=== PATIENT | male | born 1945 | race Caucasian/White ===

== ENCOUNTER → 2018-05-20 12:57 | Outpatient (CLI) | payer MEDICARE, SELFPAY ==
--- NOTE | 2018-05-20 | DI.CT.S_ITS ---
PROCEDURE: CT UE RT WO CON INDICATIONS: RIGHT HAND PAIN TECHNIQUE: Noncontrast 1 mm axial sections acquired through the carpal bones, with coronal and sagittal reformats. COMPARISON: [facility], CR, XR HAND 3+ VIEWS RIGHT, 05/16/2018, 12:37. FINDINGS: Image quality: Excellent. Bones: There is a complex comminuted intra-articular fracture involving the base of the fifth metacarpal bone, with malalignment that is moderate in overall severity and with impaction to the degree that there is a moderate degree of overlap of bone fragments in malalignment. Additionally, there is a non-displaced longitudinally oriented fracture through the fusiform bone, best seen on source axial images of T2 from series 2. Several small dystrophic calcifications are incidentally noted at the ulnar margin of the distal radius articular border, which do not represent a bulge of fragments by appearance. Soft tissues: No hematoma seen. No ligamentous rupture suspected. IMPRESSION: Impacted complex comminuted intra-articular fracture at the base of the fifth metacarpal bone, and more proximally there is a non-displaced longitudinally oriented fracture of the fusiform bone. The radius and ulna appear intact where well visualized. No additional fracture found over the visualized hand and wrist. Findings called to the ordering of care provider at the phone number provided, and voice mail was left for Dr. Vale, also with my pager number included should be wish to contact me directly. Dictated by: Victor M De Dios M.D. on 05/20/2018 at 14:06 Approved by: Victor M De Dios M.D. on 05/20/2018 at 14:18
== END ==
PROVIDERS: Family Provider Family Medicine; PCP Family Medicine; Visit Provider Orthopaedic Surgery
DX: S62.316A Displaced fracture of base of fifth metacarpal bone, right hand, initial encounter for closed fracture (principal); M79.641 Pain in right hand; X58.XXXA Exposure to other specified factors, initial encounter
CPT/HCPCS: 73200

== ENCOUNTER 2018-05-22 07:47 | Day surgery (SDC) | payer MEDICARE, SELFPAY ==
[2018-05-21 08:40] VITALS: BMI 27.3
[2018-05-22] VITALS (10 sets, daily range): BP systolic 117–165; BP diastolic 42–68; PULSE 64–77; RESP 10–16; TEMP 35.8–36.7; O2SAT 95–100; BMI 26.4
[2018-05-22] MEDS: LACTATED RINGERS 1,000 ML 42 ML IV (09:25)
--- NOTE | 2018-05-22 10:29 | PM.PREOP ---
Pre-operative Note Interval Note History & Physical reviewed/Exam performed by Physician: Yes Changes to H&P: No
[2018-05-22] MEDS: CEFAZOLIN 2 GM/100 ML FROZ.PIGGY IV (10:50)
--- NOTE | 2018-05-22 11:08 | SUR.OPER ---
Supine on padded OR bed, head on pillow, arms secured on padded arm boards at <90 degrees abduction, legs uncrossed, safety belt at thigh, tape over blanket over lower legs.AFTER INDUCTION RIGHT ARM TO HAND TABLE.
[2018-05-22] MEDS: BUPIVACAINE 0.5% W/ EPI (PF) VIAL 30 ML INJ (11:37)
--- NOTE | 2018-05-22 12:27 | P.OP_ITS ---
Operative Date/Time/Diagnoses Date of procedure: 05/22/18 Time of procedure: 11:00 Pre-op diagnosis: highly comminuted intra-articular based of 5th metacarpal fracture Post-op diagnosis: same Procedure & Clinicians Procedure: open reduction internal fixation of a intra-articular base of 5th metacarpal fracture Same procedure as scheduled: Yes Indications: highly comminuted intra-articular base of 5th metacarpal fracture Surgeon: Jaime Vale Video Camera Operator: Lorraine Dickens Anesthesia Type: General Operative Notes Findings: highly comminuted intra-articular base of 5th metacarpal fracture wi th the articular surface in multiple pieces. Closure Type: primary Prosthetic devices, grafts, tissues, transplants, or devices: Synthes handset Applied: implant(s) Estimated Blood Loss (mL): 1 Blood products transfused: none Tourniquet time (min): 75 Procedure in detail: On date of service, patient was met in the holding area. Operative site was signed and witnessed by the OR staff. The surgery once again discussed with patient and any remaining questions they had were answered fully. Patient was taken back to the operating theater and placed on the operating table in the supine position. Great care taken to ensure that all bony prominences were properly padded. A well-padded tourniquet was placed up along the upper extremity. A timeout was performed to verify patient's name, procedure, and operative site. The upper extremity was then prepped and draped in the normal sterile fashion. An Esmarch was used to exsanguinate the limb and the tourniquet was turned up to 250 mm mercury. A dorsal incision was made centered over the CMC joint. a 15 blade was used to incise the skin and fascial tissue. The dorsal branches coming off the ulnar nerve were identified and protected. The extensor tendon was retracted radially. The 15 blade was then used to open up the joint capsule to the CMC joint. This allowed us to visualize the intra-articular comminuted fracture. Reduction forceps were used to reduce the main fracture fragments and these were then provisionally fixated with multiple K wires. Once we were satisfied with the overall reduction of the articular surface, a T plate was placed with multiple screws fixating the articular fragments. This was then secured onto the shaft of the metacarpal. This provided an overall reduction of the joint surface as well as a secure fixation of part of the highly comminuted intra-articular fracture. There was still an articular fragment as well as extension into the shaft on the radial aspects of the joint. This was not fully fixated by the 1st plate. So a 2nd smaller plate was placed radially allowing us to get good fixation of the radial aspect of the comminuted joint and secure that to the shaft. A combination of both plates, provided a secure fixation of the highly comminuted intra-articular 5th metacarpal fracture The joint was then reduced the capsular tissue was then closed. Once the joint was reduced it was stable. The wound was then copiously irrigated and then closed in a layered fashion. The hand was then cleaned, dried, and dressed. Patient was placed into a splint and taken to the PACU in stable condition. Complications: none Condition: stable Disposition: PACU Plan for aftercare: patient will be immobilized for 2 weeks in a splint. At 2 weeks splint will come off sutures will be removed. Hand therapy at that point can make patient a brace immobilizing the fracture.
[2018-05-22] MEDS: fentaNYL 100 MCG/2 ML INJ 50 MCG IV (13:05)
[2018-05-22] MEDS: HYDROCODONE/ACET 5/325 TABLET 1 TAB PO ×2 (13:14→13:35)
--- NOTE | 2018-05-22 14:01 | SUR.PHASEII ---
Dr. Vale called [place] already aware of this and that pt[place]. OK for pt to d/c by [facility]le frank per Dr. Vale.
== END 2018-05-22 14:37 | disposition home or self-care (01) ==
PROVIDERS: Family Provider Family Medicine; PCP Family Medicine; Visit Provider Orthopaedic Surgery
PROC: (CPT 26615; principal; 2018-05-22 10:15)
DX: S62.316A Displaced fracture of base of fifth metacarpal bone, right hand, initial encounter for closed fracture (principal); I10 Essential (primary) hypertension; M81.0 Age-related osteoporosis without current pathological fracture; Z86.73 Personal history of transient ischemic attack (TIA), and cerebral infarction without residual deficits
CPT/HCPCS: 26615; J0690; J1100; J2704; J3010

== ENCOUNTER → 2018-12-18 10:42 | Outpatient (CLI) | payer MEDICARE, SELFPAY ==
--- NOTE | 2018-12-18 | DI.MRI.S_ITS ---
PROCEDURE: MR HIP RT WO CON INDICATIONS: trochanteric bursitis, R hip TECHNIQUE: Noncontrast coronal T1 spin echo and STIR through the bony pelvis. Coronal and axial T2 fast spin echo with fat saturation, sagittal T1 spin echo, and oblique axial T2 fast spin echo with fat saturation through the hip. COMPARISON: [facility], CR, XR PELVIS WITH BILATERAL LATERAL HIPS, 11/14/2018, 8:13. FINDINGS: Image quality: Excellent. Bones and joints: No fracture or focal osseous destruction. Bilateral hip joint degeneration and lower lumbar spondylosis. Sacroiliac joints are grossly unremarkable. Tendons and ligaments: Fluid versus blood is seen adjacent to or possibly partially within the left iliotibial band and tensor fascia mulu, image 27 series 4. This measures approximately 2.2 x 0.6 cm on axial image 25 series 4. The gluteus medius and minimus tendons appear intact, and there is minimal atrophy of the left gluteus minimus. Focal fluid collection is seen involving the iliotibial band, potentially intrasubstance location versus adjacent. The iliopsoas tendon appears intact, without adjacent bursal fluid collections or evidence for impingement syndrome. The origin of the hamstring tendon is intact at the ischial tuberosity, as well as the associated sacrotuberous ligament. The straight and reflected heads of the rectus femoris muscle origin appear intact, as well as the conjoint tendon. The ligamentum teres appears intact where visualized. Labrum and cartilage: Marked internal signal change and frayed contour of the anterosuperior labrum in keeping with severe chronic degeneration versus macerated labral tear. Rula-labral sulcus edema/heterogeneous signal change. Adjacent osseous degeneration in the acetabulum and mild chondral loss. The alpha angle of the femur is within normal limits at less than 55 degrees. Soft tissues: Visualized muscles demonstrate normal bulk and internal signal. Quadratus femoris muscle demonstrates no internal edema to suggest ischiofemoral impingement. The proximal sciatic neurovascular bundle appears normal adjacent to the hamstring tendons. No free pelvic fluid. Bladder wall thickness is normal. Genitourinary structures and bowel loops appear normal where visualized. IMPRESSION: Focal fluid adjacent to, possibly partially within the left iliotibial band, near the left tensor fascia mulu. This is suspicious for a developing/small Kessler-Yoana degloving lesion. Anterosuperior macerated labral tear, versus severe chronic degeneration. Bilateral hip joint degeneration. Dictated by: Axel Gong M.D. on 12/18/2018 at 13:24 Approved by: Axel Gong M.D. on 12/18/2018 at 13:41
== END ==
PROVIDERS: Family Provider Family Medicine; PCP Family Medicine; Visit Provider Orthopaedic Surgery
DX: M70.61 Trochanteric bursitis, right hip (principal); M16.0 Bilateral primary osteoarthritis of hip
CPT/HCPCS: 73721

== ENCOUNTER → 2020-03-07 08:55 | Outpatient (CLI) | payer MEDICARE, SELFPAY ==
[2020-03-07 10:12] LABS: COVID19 -Nasal RAPID Negative (Negative)
== END ==
PROVIDERS: Family Provider Family Medicine; PCP Family Medicine; Visit Provider Nurse Practitioner Family
DX: Z01.812 Encounter for preprocedural laboratory examination (principal); Z20.822 Contact with and (suspected) exposure to COVID-19
CPT/HCPCS: 87635; C9803

== ENCOUNTER 2020-03-09 09:24 | Day surgery (SDC) | payer MEDICARE, SELFPAY ==
--- NOTE | 2020-03-08 12:13 | PM.PREOP ---
Pre-operative Note COVID-19 COVID-19 status: Negative Interval Note History & Physical reviewed/Exam performed by Physician: Yes Changes to H&P: No
--- NOTE | 2020-03-09 07:34 | PM.OP.1 ---
Operative Date/Time/Diagnoses Date of procedure: 03/09/20 Time of procedure: 10:45 Procedure & Clinicians Procedure: Preoperative diagnoses: 1. Right complex surgery with use of capsular dye. 2. Mature or advanced nuclear sclerotic and cortical cataract with poor visibility of the anterior capsule increasing surgical risks of complications. 3. Previous LASIK 4. Dry eye with punctal plugs in place. 5. Previous stroke on anticoagulation with Xarelto. 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 Complex surgery with use of capsular dye. 2. Placement of a posterior chamber intraocular lens implant. Surgeon: Bhavana Burgos MD Complications: none Specimen: None Implant: ZCBOO+21.5 Blood loss: None Anesthesia: Retrobulbar with monitored standby. Description of procedure: Dictated by: Bhavana Burgos MD Post operative diagnoses: 1. Right cataract removed with use of capsular dye . 2. Placement of a posterior chamber intraocular lens. Procedure: Phacoemulsification with posterior chamber intraocular lens implant Surgeon: Bhavana Burgos MD Blood loss: None Anesthesia: Retrobulbar with monitored standby Description of procedure: Patient has presented with decreased vision due to cataract which is affecting activities of daily living distance and near. He has had a stroke and is on chronic anticoagulation which he did not want to stop for surgery. 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 However today he dilates adequately in the ring was not used. The patient wants surgery to improve vision. He understands the extra risk operation during the COVID-19 procedure and wishes to proceed. These increased risks use our include increased bleeding risk due to his anticoagulation and increased complications due to his previous tamsulosin use and LASIK. He was tested negative prior to the procedure. The patient was taken to the operating room and given IV sedation. Due to his anticoagulation status topical proparacaine drops were placed he was prepped using Betadine solution, and draped in the usual sterile fashion. Then topical lidocaine gel was placed to increase his anesthesia. Temporal approach was made, a 1 mm side-port incision was performed 90 degrees from the planned corneal wound. Phenylephrine 1.5% mixed with 1% xylocaine 0.2 cc was placed into the anterior chamber. An air bubble was placed and Visudyne dye was placed to improve visibility of the anterior capsule. The dye was irrigated out to reduce bubbles. Viscoat followed by Gopi was then placed. A 2.6 mm clear incision with a 2.6 mm blade was placed. A 360 degree capsulorrhexis style capsulotomy was then performed with a cystitome needle on a Healon Hydrodelineation and hydrodissection were performed. The phacoemulsification unit is introduced, and sculpting used to groove the central lens. It is then removed in chopping mode. The iris did not flop. Epi nucleus is removed with epinuclear mode and irrigation aspiration was used to remove the peripheral cortex. The posterior capsule is polished. The intraocular lens is selected, inspected, power confirmed, and placed in the posterior chamber. he wound was stromally hydrated and tested for leaks, there was none and was left sutureless. Vigamox 0.1 cc was placed into the anterior chamber. Kenalog 0.2 cc was placed in the inferior subconjunctival space. A drop of antibiotic and was placed and the eye had a contact lens put on it as he is not to be patched . Tthis was done for increased postoperative comp comfort and will be removed tomorrow. The patient was stable and returned to the recovery room in excellent condition. he wishes to resume his anticoagulation and will take his usual dose of generic Plavix Dictated by: Bhavana Burgos MD Copy to: [facility] Same procedure as scheduled: Yes
[2020-03-09] MEDS: PROPARACAINE 0.5% OPHTH SOL 2 DROPS EYE-OP ×2 (09:46→10:41)
[2020-03-09] MEDS: CATARACT EYE COMPOUND (10 DROPS/SYRINGE) 3 DROPS EYE-OP (09:49)
[2020-03-09 09:58] VITALS: BP 160/88; PULSE 81; RESP 16; TEMP 36.9; O2SAT 99; BMI 24.3
[2020-03-09] MEDS: ERYTHROMYCIN OPHTH 1 GM OINT 1 APPLIC EYE-RIGHT (10:38)
[2020-03-09] MEDS: MOXIFLOXACIN INJ 5 MG/ML VIAL EYE-OP (10:38)
[2020-03-09] MEDS: CHONDROIDTIN/SOD HYALURONATE 1.05 ML SYRINGE INTRAOCULA (10:38)
[2020-03-09] MEDS: HYALURONATE SODIUM 10 MG/ML SYRINGE INJ (10:38)
[2020-03-09] MEDS: BALANCED SALT IRRIG SOLN NO.2 500 ML, EPINEPHrine 1 MG IRR (10:39)
[2020-03-09] MEDS: TRYPAN BLUE 0.5 ML SYRINGE INJ (10:39)
[2020-03-09] MEDS: TRIAMCINOLONE 50 MG/5 ML VIAL INJ (10:39)
[2020-03-09] MEDS: PHENYLEPHRINE/LIDOCAINE VIAL (OR) 0.2 ML EYE-OP (10:39)
[2020-03-09] MEDS: LIDOCAINE JELLY 2% 5 ML 1 APPLIC TOP (10:40)
[2020-03-09 11:15] VITALS: BP 144/71; PULSE 68; RESP 17; TEMP 36.4; O2SAT 99
[2020-03-09 11:30] VITALS: BP 163/82; PULSE 78; RESP 17; TEMP 36.1; O2SAT 99
--- NOTE | 2020-03-09 12:30 | SUR.PHASEII ---
1145-Pt dcd in stable condition via wc to at curbside in car. All dc instructions and tape given to pt and both verbalize understanding
== END 2020-03-09 11:45 | disposition home or self-care (01) ==
LOC: OR 09:27
PROVIDERS: Family Provider Family Medicine; PCP Family Medicine; Referring Provider Family Medicine; Visit Provider Ophthalmology
PROC: (CPT 66982; principal; 2020-03-09 09:45)
DX: H25.811 Combined forms of age-related cataract, right eye (principal); H21.81 Floppy iris syndrome; H04.129 Dry eye syndrome of unspecified lacrimal gland; Z79.01 Long term (current) use of anticoagulants; Z86.73 Personal history of transient ischemic attack (TIA), and cerebral infarction without residual deficits; I10 Essential (primary) hypertension
CPT/HCPCS: 66982; J0171; J2250; J3010; J3301

== ENCOUNTER → 2022-06-14 12:27 | Outpatient (CLI) | payer MEDICARE, SELFPAY ==
--- NOTE | 2022-06-14 | DI.ECHO.S_ITS ---
[facility]---------+ [facility] +---------+ : : [address] : : : : [id number] : : : : Phone: [phone]+ Echocardiogram Report + + :Name: VELIA PRINGLE Study Date: 06/14/2022 Height: 68 in : :[facility] ReadingLocation: Weight: 154 lb : : Gender: Male BSA: 1.8 m2 : :: 1945 Age: 77 yrs BP: 123/56 mmHg: :Reason For Study: CARDIOMYOPATHIES : :Ordering Physician: LINDSEY, : :MITRA Higginbotham Performed By: Ngoc De La Cruz : :Referring: SUMMER CHAVEZ : + + Interpretation Summary The ejection fraction is estimated to be 35-40%. There is severe hyper to akinesis of the inferior and inferolateral jacome. Diastolic function could not be accurately assessed due to confounding valvular disease. The left atrium is severely dilated. The right ventricle is normal in size, thickness and function. Right ventricular systolic function is at the lower limits of normal. The right atrium is mildly dilated. A mitral valve clip is present. The mitral valve mean gradient is 5.0 mmHg. There is mild mitral regurgitation. There is trace aortic regurgitation. There is mild to moderate tricuspid regurgitation. Right ventricular systolic pressure is estimated to be 42 mmHg plus the clinically estimated CVP which cannot be estimated on this exam. Compared to the prior study dated 01/21/2021, mild valve now has evidence of a clip and is less regurgitant. Procedure: A two-dimensional transthoracic echocardiogram with color flow and Doppler was performed. The study quality was technically adequate. Comparison is made with the echocardiogram of 01/21/2021. The heart rate ranged between 62-82 bpm during the study. Left Ventricle: The left ventricle is normal in size and wall thickness. The ejection fraction is estimated to be 35-40%. Septal motion is consistent with conduction abnormality. There is severe hyper to akinesis of the inferior and inferolateral jacome. Diastolic function could not be accurately assessed due to confounding valvular disease. Right Ventricle: The right ventricle is normal in size, thickness and function. Right ventricular systolic function is at the lower limits of normal. Atria: The left atrium is severely dilated. The right atrium is mildly dilated. Doppler evidence suggests a left to right interatrial shunt. Mitral Valve: A mitral valve clip is present. The mitral valve mean gradient is 5.0 mmHg. There is mild mitral regurgitation. Aortic Valve: The aortic valve is trileaflet. The aortic valve is mildly calcified. There is mild aortic valve sclerosis. The peak aortic velocity is 1.9 m/sec. The aortic valve mean gradient is 8 mmHg. There is no hemodynamically significant valvular aortic stenosis. There is trace aortic regurgitation. Tricuspid Valve: The tricuspid valve is normal in structure and function. There is mild to moderate tricuspid regurgitation. Right ventricular systolic pressure is estimated to be 42 mmHg plus the clinically estimated CVP which cannot be estimated on this exam. Pulmonic Valve: The pulmonic valve leaflets are thin and pliable; valve motion is normal. There is no pulmonic valvular regurgitation. Great Vessels: The aortic root is normal size. The dimensions of the ascending aorta are normal. The inferior vena cava was not well visualized. Pericardium/ Pleura There is no pericardial effusion. There is no pleural effusion. MMode/2D Measurements & Calculations LVIDd: 5.8 cm LVOT diam: 2.3 cm LVIDs: 4.8 cm Ao root diam: 2.8 cm FS: 18.5 % asc Aorta Diam: 3.0 cm IVSd: 0.75 cm LVPWd: 0.73 cm LV link. diameter/BSA (cm/m^2): 3.2 LV sys. diameter/BSA (cm/m^2): 2.6 LA A2 area: 24.4 cm2 RA long axis: 5.8 cm LA A4 area: 25.1 cm2 RA area: 20.8 cm2 LA length (vol): 5.5 cm RA vol: 64.0 ml LA vol: 95.3 ml RA : 35.0 ml/m2 LA vol index: 52.1 ml/m2 RVD1 (basal): 3.7 cm RVD2 (mid): 3.2 cm TAPSE: 1.6 cm Doppler Measurements & Calculations Ao V2 max: 189.3 cm/sec LVOT Max Herman: 89.2 cm/sec Ao V2 mean: 129.0 cm/sec LV V1 max P.2 mmHg Ao max P.3 mmHg LV V1 VTI: 18.6 cm Ao mean P.7 mmHg JAMILAH(I,D): 2.1 cm2 Ao V2 VTI: 35.8 cm JAMILAH(V,D): 1.9 cm2 sev ratio: 0.52 JAMIALH indexed to BSA (cm^2/m^2): 1.1 MV E max herman: 147.8 cm/sec TR max herman: 324.2 cm/sec MV A max herman: 89.9 cm/sec TR max P.0 mmHg MV E/A: 1.6 PA V2 max: 102.5 cm/sec Med Peak E' Herman: 3.1 cm/sec PA V2 mean: 69.9 cm/sec E/E' med: 47.6 PA mean P.2 mmHg Lat Peak E' Herman: 6.3 cm/sec PA pr(Accel): 32.8 mmHg E/E' lat: 23.6 E/e' average: 35.6 MV dec time: 0.32 sec MVA(VTI): 1.7 cm2 MV V2 mean: 101.9 cm/sec SV(LVOT): 75.2 ml MV mean P.0 mmHg MV V2 VTI: 43.6 cm Reading Physician:03:35 PM
== END ==
PROVIDERS: Family Provider Family Medicine; PCP Family Medicine; Referring Provider Internal Medicine Cardiovascular Disease; Visit Provider Internal Medicine Cardiovascular Disease
DX: I42.8 Other cardiomyopathies (principal); I08.3 Combined rheumatic disorders of mitral, aortic and tricuspid valves
CPT/HCPCS: 93306

== ENCOUNTER 2023-11-25 22:53 | Inpatient (IN) | payer MEDICARE, SELFPAY ==
--- NOTE | 2023-11-25 22:59 | DI.RAD.S_ITS ---
PROCEDURE: XR HIP W PEL IF DONE LT 2V INDICATIONS: GLF, L HIP PAIN TECHNIQUE: AP pelvis with lateral view(s) of the left hip(s). COMPARISON: None. FINDINGS: Bones: Acute fracture involving medial aspect of right superior pubic ramus is seen with minimal displacement at fracture site. No left hip fracture or dislocation. Pelvic ring appears intact. Bilateral hip joint osteoarthritic changes are seen. No evidence of avascular necrosis of femoral head. No suspicious bony lesions. Soft tissues: The visualized bowel gas pattern is normal. No suspicious soft tissue calcifications. IMPRESSION: No gross acute left hip fracture or dislocation. Slightly displaced fracture involving left superior pubic ramus. Dictated by: Yariel Sesay M.D. on 11/25/2023 at 23:29 Approved by: Yariel Sesay M.D. on 11/25/2023 at 23:31
--- NOTE | 2023-11-25 23:00 | DI.CT.S_ITS ---
PROCEDURE: CT HEAD/BRAIN WO CON INDICATIONS: GLF ON ELIQUIS TECHNIQUE: Noncontrast 4.5 mm thick angled axial sections acquired from the foramen magnum to the vertex, with coronal and sagittal reformats. For radiation dose reduction, the following was used: automated exposure control, adjustment of mA and/or kV according to patient size. COMPARISON: None. FINDINGS: Image quality: Diagnostic. CSF spaces: Basal cisterns are patent. No extra-axial fluid collections. The ventricles are symmetric in size and shape. Brain: No intracranial bleeds or masses. There is cerebral volume loss for age, with resultant ventricular and sulcal prominence. There are periventricular and deep white matter chronic small vessel ischemic changes. There is intracranial internal carotid artery atherosclerosis. Skull and face: Calvarium and visualized facial bones appear intact, without suspicious lesions. Sinuses: Visualized sinuses and mastoids are clear. IMPRESSION: 1. No acute intracranial pathology. 2. Age related volume loss and extensive white matter chronic small vessel ischemic changes. Dictated by: Yariel Sesay M.D. on 11/25/2023 at 23:31 Approved by: Yariel Sesay M.D. on 11/25/2023 at 23:32
--- NOTE | 2023-11-25 23:02 | ED.FALL ---
HPI - Fall General Chief Complaint: Trauma Stated Complaint: Hip Pain Time Seen by Provider: 11/25/23 22:54 History of Present Illness HPI Narrative: 78-year-old male with history of AFib on Eliquis, previous history of CVA with aphasia, coronary disease presents by EMS from his assisted living facility for left hip pain. Patient reportedly fell around noon today, unwitnessed, at his nursing facility. Per EMS the patient was initially able to ambulate at his nursing facility at dinnertime. This evening the patient was complaining of hip pain and his [id number] requested that patient be evaluated in the emergency department. Related Data Home Medications Medication Instructions Recorded Confirmed cholecalciferol (vitamin D3) 50 2,000 unit PO DAILY ##0 07/15/12 05/22/18 mcg (2,000 unit) capsule (Vitamin D3) oxycodone 5 mg tablet 0 mg PO Q4HP PRN pain 05/21/18 05/22/18 rivaroxaban 20 mg tablet (Xarelto) 20 mg PO DAILY 05/21/18 05/22/18 omega 4-wvx-xip-fish oil 1,000 mg 500 mg PO DAILY 05/22/18 05/22/18 (120 mg-180 mg) capsule (Fish Oil) prednisone 5 mg tablet 5 mg PO BID 05/22/18 05/22/18 clopidogrel 03/09/20 furosemide 03/09/20 hydralazine 03/09/20 Previous Rx's Medication Instructions Recorded Disabled Parking Permit ea ##1 03/09/16 losartan 100 mg tablet 100 mg PO QDAY #90 tabs 09/18/16 triamterene 37.5 1 tab PO QDAY #90 tabs 09/18/16 mg-hydrochlorothiazide 25 mg tablet hydrocodone 5 mg-acetaminophen 325 2 tab PO Q4-6H PRN pain #60 tabs 05/22/18 mg tablet ([place]) Allergies Allergy/AdvReac Type Severity Reaction Status Date / Time amlodipine Allergy Verified 11/26/23 00:24 dexamethasone Allergy Verified 11/26/23 00:24 lisinopril Allergy Verified 11/26/23 00:24 tositumomab iodine-131 Allergy Verified 11/26/23 00:24 Patient History Medical History Tachycardia Afib CVA (cerebral vascular accident) (~2013) Spinal stenosis Poor balance Surgical History Status post cataract extraction and insertion of intraocular lens of left eye Hx of LASIK Social History household members: spouse Smoking Status: Never smoker alcohol intake: current Smoking Status: Never smoker alcohol intake frequency: a few times a week Substance Use Type: does not use Exam Initial Vital Signs Initial Vital Signs: Vital Signs Temperature 98.4 F 11/25/23 23:03 Pulse Rate 85 11/25/23 23:03 Respiratory Rate 19 11/25/23 23:03 Blood Pressure 137/85 11/25/23 23:03 Pulse Oximetry 98 11/25/23 23:03 Oxygen Delivery Method Room Air 11/25/23 23:03 Const: Awake, alert, no acute distress, debilitated, frail Cardiac: Irregularly irregular rhythm RESP: unlabored, clear bilaterally, no wheezing MSK: Fist sized swelling left hip, no shortening, DP pulses palpable, able to wiggle toes Skin: Warm, Dry, intact, no rashes Neuro: AO x2, CN II-XII grossly intact, moves all extremities Course Orders Ordered: ED Orders 11/25/23 22:59 XR hip w pel if done LT 2V Stat 11/25/23 23:00 CT head/brain wo con Stat 11/26/23 00:17 CT pelvis wo con Stat 11/26/23 00:25 CBC Auto Diff [Complete Blood Count AUTO DIFF] Stat CMP [Comprehensive Metabolic Panel] Stat Vital Signs Vital signs: Vital Signs - 8 hr 11/25/23 23:03 11/25/23 23:23 11/25/23 23:24 Temperature 98.4 F Pulse Rate 85 77 78 Respiratory Rate 19 Blood Pressure 137/85 Pulse Oximetry 98 98 98 Oxygen Delivery Method Room Air 11/25/23 23:24 11/25/23 23:30 11/25/23 23:30 Temperature Pulse Rate 74 Respiratory Rate Blood Pressure 130/62 131/60 Pulse Oximetry 98 Oxygen Delivery Method Room Air 11/26/23 00:18 11/26/23 00:37 11/26/23 00:38 Temperature Pulse Rate 78 76 76 Respiratory Rate Blood Pressure Pulse Oximetry 99 95 99 Oxygen Delivery Method 11/26/23 00:38 Temperature Pulse Rate Respiratory Rate Blood Pressure 134/60 Pulse Oximetry Oxygen Delivery Method Room Air MDM - Fall Lab Data 11/26/23 00:25 11/26/23 00:25 Labs: Lab Results 11/26/23 Range/Units 00:25 WBC 8.7 (4.5-11.0) X10^3/uL RBC 3.73 L (4.5-5.9) X10^6/uL Hgb 12.3 L (13.5-17.5) g/dL Hct 35.2 L (41-53) % MCV 94.3 (80-100) fL MCH 32.9 (26-34) PG MCHC 34.9 (30-36) % RDW 14.5 (11.6-14.8) % Plt Count 163 (150-400) X10^3/uL Neut % (Auto) 74.3 (50-75) % Lymph % (Auto) 16.2 L (25-40) % [place] % (Auto) 8.1 (3-14) % Eos % (Auto) 1.1 L (2-4) % Baso % (Auto) 0.3 (0-2) % Neut # (Auto) 6400 (5113-2044) /uL Lymph # (Auto) 1400 (6083-7984) /uL [place] # (Auto) 700 (0-900) /uL Eos # (Auto) 100 (0-450) /uL Baso # (Auto) 0 (0-100) /uL Sodium 139 (137-145) mmol/L Potassium 3.6 (3.4-5.1) mmol/L Chloride 104 (98-107) mmol/L Carbon Dioxide 31 (22-32) mmol/L BUN 35 H (9-20) mg/dL Creatinine 1.04 (0.66-1.25) mg/dL Estimated GFR > 60 (>60) mL/min BUN/Creatinine Ratio 33.7 H (6-22) Glucose 128 H (80-110) mg/dL Calcium 9.5 (8.4-10.2) mg/dL Total Bilirubin 0.8 (0.2-1.3) mg/dL AST 49 (17-59) IU/L ALT 38 (<50) IU/L Alkaline Phosphatase 141 H (38-126) U/L Total Protein 7.3 (6.3-8.2) g/dL Albumin 3.8 (3.5-5.0) g/dL Globulin 3.5 (1.7-4.1) g/dL Albumin/Globulin Ratio 1.1 (1.0-2.8) Imaging Data Extremity x-ray #1: Radiologist's Impression: PROCEDURE: XR HIP W PEL IF DONE LT 2V INDICATIONS: GLF, L HIP PAIN TECHNIQUE: AP pelvis with lateral view(s) of the left hip(s). COMPARISON: None. FINDINGS: Bones: Acute fracture involving medial aspect of right superior pubic ramus is seen with minimal displacement at fracture site. No left hip fracture or dislocation. Pelvic ring appears intact. Bilateral hip joint osteoarthritic changes are seen. No evidence of avascular necrosis of femoral head. No suspicious bony lesions. Soft tissues: The visualized bowel gas pattern is normal. No suspicious soft tissue calcifications. IMPRESSION: No gross acute left hip fracture or dislocation. Slightly displaced fracture involving left superior pubic ramus. Dictated by: Yariel Sesay M.D. on 11/25/2023 at 23:29 Approved by: Yariel Sesay M.D. on 11/25/2023 at 23:31 PROCEDURE: CT PEL WO CON INDICATIONS: PUBIC RAMUS FX, UNABLE TO BEAR WEIGHT TECHNIQUE: Noncontrast 3 mm axial sections acquired through the bony pelvis, with coronal and sagittal reformatting. COMPARISON: [facility], , XR HIP W PEL IF DONE LT 2V, 11/25/2023, 23:01. FINDINGS: Image quality: Excellent. Bones: Comminuted fracture involving medial aspect of left superior pubic ramus adjacent to symphysis pubis is seen. Slight superior displacement of a fractured fragment is also seen. There is also a minimally displaced comminuted fracture involving midportion of left inferior pubic ramus. No other fracture or dislocation is seen. Osteoarthritic changes are noted throughout bony pelvis. No evidence of avascular necrosis of femoral head. Degenerative disc disease in visualized lower lumbar spine is seen. No suspicious bony lesions. Soft tissues: There is soft tissue swelling and edema adjacent to left pubic ramus fracture site. There is large soft tissue hematoma involving soft tissue over left greater trochanter with internal blood fluid level. Slight asymmetrically enlarged left adductor muscles are also seen adjacent to the pubic ramus fracture site suggestive of small intramuscular hematoma. No pelvic free fluid or free air. IMPRESSION: 1. Acute comminuted and slightly displaced fractures involving left superior and inferior pubic rami as described above. 2. No other fracture or dislocation. Pelvic osteoarthritis. No evidence of avascular necrosis of femoral head. 3. Soft tissue contusion involving lateral left hip with large soft tissue hematoma. 4. Suggestion of small intramuscular hematoma involving left pelvic floor muscles adjacent to pubic ramus fracture sites. No pelvic free fluid or free air. Dictated by: Yariel Sesay M.D. on 11/26/2023 at 0:48 Approved by: Yariel Sesay M.D. on 11/26/2023 at 0:52 CT scan - head: Radiologist's Impression: PROCEDURE: CT HEAD/BRAIN WO CON INDICATIONS: GLF ON ELIQUIS TECHNIQUE: Noncontrast 4.5 mm thick angled axial sections acquired from the foramen magnum to the vertex, with coronal and sagittal reformats. For radiation dose reduction, the following was used: automated exposure control, adjustment of mA and/or kV according to patient size. COMPARISON: None. FINDINGS: Image quality: Diagnostic. CSF spaces: Basal cisterns are patent. No extra-axial fluid collections. The ventricles are symmetric in size and shape. Brain: No intracranial bleeds or masses. There is cerebral volume loss for age, with resultant ventricular and sulcal prominence. There are periventricular and deep white matter chronic small vessel ischemic changes. There is intracranial internal carotid artery atherosclerosis. Skull and face: Calvarium and visualized facial bones appear intact, without suspicious lesions. Sinuses: Visualized sinuses and mastoids are clear. IMPRESSION: 1. No acute intracranial pathology. 2. Age related volume loss and extensive white matter chronic small vessel ischemic changes. Dictated by: Yariel Sesay M.D. on 11/25/2023 at 23:31 Approved by: Yariel Sesay M.D. on 11/25/2023 at 23:32 MDM Narrative Medical decision making narrative: Ground level fall with left hip pain. Patient does seem to have a hematoma on the left hip, no obvious shortening. X-ray imaging ordered. X-ray imaging shows pubic ramus fracture, no femoral fracture. Unfortunately patient was unable to bear any weight whatsoever without maximum [address] scan will be ordered to assess for occult hip fracture. CT shows no hip fracture, however inferior and superior ramus fractures identified. Since patient is unable to bear any weight whatsoever plan to admit for further treatment. Discharge Plan Departure Patient Disposition: Admitted As Inpatient Clinical Impression: Closed fracture of pubic ramus Qualifiers: Encounter type: initial encounter Laterality: left Qualified Code(s): S32.592A - Other specified fracture of left pubis, initial encounter for closed fracture Prescriptions: No Action cholecalciferol (vitamin D3) [Vitamin D3] 2,000 unit Capsule 2,000 unit PO DAILY Qty: 0 Disabled Parking Permit Qty: 1 0RF triamterene-hydrochlorothiazid 37.5 MG/25 MG tablet 1 tab PO QDAY Qty: 90 1RF losartan 100 MG tablet 100 mg PO QDAY Qty: 90 1RF Xarelto 20 mg Tablet 20 mg PO DAILY oxycodone 5 MG tablet 0 mg PO Q4HP PRN (Reason: pain) omega 9-vnl-dyf-fish oil [Fish Oil] 1,000 mg (120 mg-180 mg) Capsule 500 mg PO DAILY prednisone 5 MG tablet 5 mg PO BID hydrocodone-acetaminophen [[place]] 5-325 mg tablet 2 tab PO Q4-6H PRN (Reason: pain) Qty: 60 0RF clopidogrel furosemide hydralazine Referrals: Allen Waters MD [Primary Care Provider] - Admit Date/Time: 11/26/23 01:00 Admit Provider: Laurent Plasencia
[2023-11-25 23:03] VITALS: BP 137/85; PULSE 85; RESP 19; TEMP 36.9; O2SAT 98
[2023-11-25 23:23] VITALS: PULSE 77; O2SAT 98
[2023-11-25 23:24] VITALS: BP 130/62; PULSE 78; O2SAT 98
[2023-11-25 23:30] VITALS: BP 131/60; PULSE 74; O2SAT 98
[2023-11-26] VITALS (10 sets, daily range): BP systolic 97–145; BP diastolic 46–79; PULSE 64–78; RESP 16–18; TEMP 36.3–36.7; O2SAT 95–100; BMI 21.4
--- NOTE | 2023-11-26 00:17 | DI.CT.S_ITS ---
PROCEDURE: CT PEL WO CON INDICATIONS: PUBIC RAMUS FX, UNABLE TO BEAR WEIGHT TECHNIQUE: Noncontrast 3 mm axial sections acquired through the bony pelvis, with coronal and sagittal reformatting. COMPARISON: [facility], CR, XR HIP W PEL IF DONE LT 2V, 11/25/2023, 23:01. FINDINGS: Image quality: Excellent. Bones: Comminuted fracture involving medial aspect of left superior pubic ramus adjacent to symphysis pubis is seen. Slight superior displacement of a fractured fragment is also seen. There is also a minimally displaced comminuted fracture involving midportion of left inferior pubic ramus. No other fracture or dislocation is seen. Osteoarthritic changes are noted throughout bony pelvis. No evidence of avascular necrosis of femoral head. Degenerative disc disease in visualized lower lumbar spine is seen. No suspicious bony lesions. Soft tissues: There is soft tissue swelling and edema adjacent to left pubic ramus fracture site. There is large soft tissue hematoma involving soft tissue over left greater trochanter with internal blood fluid level. Slight asymmetrically enlarged left adductor muscles are also seen adjacent to the pubic ramus fracture site suggestive of small intramuscular hematoma. No pelvic free fluid or free air. IMPRESSION: 1. Acute comminuted and slightly displaced fractures involving left superior and inferior pubic rami as described above. 2. No other fracture or dislocation. Pelvic osteoarthritis. No evidence of avascular necrosis of femoral head. 3. Soft tissue contusion involving lateral left hip with large soft tissue hematoma. 4. Suggestion of small intramuscular hematoma involving left pelvic floor muscles adjacent to pubic ramus fracture sites. No pelvic free fluid or free air. Dictated by: Yariel Sesay M.D. on 11/26/2023 at 0:48 Approved by: Yariel Sesay M.D. on 11/26/2023 at 0:52
--- NOTE | 2023-11-26 00:19 | PC.NURSE ---
Provider Yaron asks this RN and Gabino to walk patient. Patient fails ambulation trial. C/O pain in his lower back. 2 person heavy assist.
[2023-11-26 00:34] LABS: Add Manual Diff / Slide Review NO; Basophils Absolute Auto 0 /uL (0-100); Basophils Percent Auto 0.3 % (0-2); Eosinophils Absolute Auto 100 /uL (0-450); Eosinophils Percent Auto 1.1 % (2-4); Hematocrit 35.2 % (41-53); Hemoglobin 12.3 g/dL (13.5-17.5); Lymphocytes Absolute Auto 1400 /uL (1100-4500); Lymphocytes Percent Auto 16.2 % (25-40); Mean Corpuscular HGB Conc 34.9 % (30-36); Mean Corpuscular Hemoglobin 32.9 PG (26-34); Mean Corpuscular Volume 94.3 fL (80-100); Monocytes Absolute Auto 700 /uL (0-900); Monocytes Percent Auto 8.1 % (3-14); Neutrophils Absolute Auto 6400 /uL (1500-7000); Neutrophils Percent Auto 74.3 % (50-75); Platelet Count 163 X10^3/uL (150-400); Red Blood Cell Count 3.73 X10^6/uL (4.5-5.9); Red Cell Distribution Width 14.5 % (11.6-14.8); White Blood Cell Count 8.7 X10^3/uL (4.5-11.0)
[2023-11-26 00:46] LABS: Alanine Aminotransferase 38 IU/L (<50); Albumin 3.8 g/dL (3.5-5.0); Albumin Globulin Ratio 1.1 (1.0-2.8); Alkaline Phosphatase 141 U/L (38-126); Aspartate Aminotransferase 49 IU/L (17-59); BUN Creatinine Ratio 33.7 (6-22); Bilirubin Total 0.8 mg/dL (0.2-1.3); Blood Urea Nitrogen 35 mg/dL (9-20); Calcium 9.5 mg/dL (8.4-10.2); Carbon Dioxide 31 mmol/L (22-32); Chloride 104 mmol/L (98-107); Estimated Glomerular Filt Rate > 60 mL/min (>60); Globulin 3.5 g/dL (1.7-4.1); Glucose 128 mg/dL (80-110); HEMOLYSIS < 15 (0-50); Potassium 3.6 mmol/L (3.4-5.1); Sodium 139 mmol/L (137-145); Total Protein 7.3 g/dL (6.3-8.2)
--- NOTE | 2023-11-26 01:58 | P.HP_ITS ---
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 The patient was unable to ambulate and was sent to the ER for further evaluation. Seems to be kind of poor historian. Denies any loss of consciousness, head injury, chest pain, palpitations or dizziness prior to the event. Reports some frequent falls lately. Denies any other symptoms. In the ER he was found to have pelvic fracture and was decided to be admitted for pain control and physical therapy evaluation. [facility] Medical History Tachycardia Afib CVA (cerebral vascular accident) (~2013) Spinal stenosis Poor balance Surgical History Status post cataract extraction and insertion of intraocular lens of left eye Hx of LASIK Social History household members: spouse Smoking Status: Never smoker alcohol intake: current Meds Home Medications and Allergies Home Medications Medication Instructions Recorded Confirmed Type Disabled Parking Permit ea ##1 03/09/16 Rx hydralazine 25 mg TID 03/09/20 11/26/23 History acetaminophen 1 tab TID 11/26/23 11/26/23 History apixaban 5 mg tablet (Eliquis) 5 mg PO BID 11/26/23 11/26/23 History bumetanide 2 mg tablet 2 mg PO DAILY 11/26/23 11/26/23 History levothyroxine 25 mcg tablet 25 mcg PO DAILY 11/26/23 11/26/23 History naproxen 2 tab DAILY 11/26/23 11/26/23 History potassium chloride 20 mEq 20 meq PO DAILY 11/26/23 11/26/23 History tablet,extended release(part/cryst) risperidone 0.25 mg tablet 0.25 mg PO DAILY 11/26/23 11/26/23 History risperidone 0.5 mg tablet 0.5 mg PO BEDTIME 11/26/23 11/26/23 History sacubitril 24 mg-valsartan 26 mg 1 tab PO BID 11/26/23 11/26/23 History tablet (Entresto) sertraline 25 mg tablet 25 mg PO DAILY 11/26/23 11/26/23 History Allergies Allergy/AdvReac Type Severity Reaction Status Date / Time amlodipine Allergy Verified 11/26/23 00:24 dexamethasone Allergy Verified 11/26/23 00:24 lisinopril Allergy Verified 11/26/23 00:24 tositumomab iodine-131 Allergy Verified 11/26/23 00:24 Review of Systems Review of Systems ROS: Yes All systems reviewed with the patient and are negative except as otherwise documented Constitutional Constitutional: Reports as per HPI and Reports system reviewed and no additional complaints, except as documented Eyes Eyes: Reports as per HPI and Reports system reviewed and no additional complaints, except as documented ENT Ears, Nose, Mouth, and Throat: Yes as per HPI and Yes system reviewed and no additional complaints, except as documented Cardiovascular Cardiovascular: Reports system reviewed and no additional complaints, except as documented Respiratory Respiratory: Reports system reviewed and no additional complaints, except as documented Gastrointestinal Gastrointestinal: Reports system reviewed and no additional complaints, except as documented Genitourinary Genitourinary: Reports system reviewed and no additional complaints, except as documented Musculoskeletal Musculoskeletal: Reports system reviewed and no additional complaints, except as documented, Reports abnormal gait and Reports numbness Neurologic Neurologic: Reports system reviewed and no additional complaints, except as documented, Reports abnormal gait, Reports confusion and Reports numbness Psychiatric Psychiatric: Reports system reviewed and no additional complaints, except as documented and Reports confusion Exam Vital Signs (past 8 hours): - 11/25/23 23:03 11/25/23 23:23 11/25/23 23:24 Temperature 98.4 F Pulse Rate 85 77 78 Respiratory Rate 19 Blood Pressure 137/85 Pulse Oximetry 98 98 98 Oxygen Delivery Method Room Air 11/25/23 23:24 11/25/23 23:30 11/25/23 23:30 Temperature Pulse Rate 74 Respiratory Rate Blood Pressure 130/62 131/60 Pulse Oximetry 98 Oxygen Delivery Method Room Air 11/26/23 00:18 11/26/23 00:37 11/26/23 00:38 Temperature Pulse Rate 78 76 76 Respiratory Rate Blood Pressure Pulse Oximetry 99 95 99 Oxygen Delivery Method 11/26/23 00:38 Temperature Pulse Rate Respiratory Rate Blood Pressure 134/60 Pulse Oximetry Oxygen Delivery Method Room Air Oxygen Delivery Method Room Air Const General: cooperative, comfortable and well developed Orientation: alert and oriented x3 [facility] Head: normal to inspection, normocephalic and atraumatic Face and sinus: normal facial exam Mouth: oral mucosae normal and moist mucous membranes Throat: posterior oropharynx normal Eyes General: appearance normal, both eyes and all related structures Pupils: PERRL EOM: EOM intact bilaterally Neck Neck: normal visual inspection and full ROM Chest Chest: normal inspection of the chest Resp Effort & Inspection: normal respiratory effort and able to speak in complete sentences Auscultation: clear to auscultation bilaterally Cardio Palpation: normal PMI Rate: regular rate Rhythm: regular rhythm Heart Sounds: S1 normal and S2 normal GI Inspection: normal to inspection Palpation: soft and no hepatosplenomegaly Auscultation: normal bowel sounds Skin General: no rashes or lesions noted Lesions: no lesions Rashes: no rashes Trauma: no lacerations or abrasions Neuro General: patient alert, patient awake, patient oriented x3 and no focal motor deficits Cranial Nerves: CN's II-XI intact bilaterally Cognition: normal cognition Speech: speech normal Gait: normal gait Motor: muscle tone normal throughout Sensory Exam: no sensory deficits noted Extrem General: full ROM and no calf tenderness Psych Appearance: grossly normal Mental Status: mental status grossly normal Speech and Movement: speech and movement normal Objective Labs 11/26/23 00:25 11/26/23 00:25 Labs: Laboratory Results - last 24 hr 11/26/23 00:25 WBC 8.7 RBC 3.73 L Hgb 12.3 L Hct 35.2 L MCV 94.3 MCH 32.9 MCHC 34.9 RDW 14.5 Plt Count 163 Neut % (Auto) 74.3 Lymph % (Auto) 16.2 L [place] % (Auto) 8.1 Eos % (Auto) 1.1 L Baso % (Auto) 0.3 Neut # (Auto) 6400 Lymph # (Auto) 1400 [place] # (Auto) 700 Eos # (Auto) 100 Baso # (Auto) 0 Sodium 139 Potassium 3.6 Chloride 104 Carbon Dioxide 31 BUN 35 H Creatinine 1.04 Estimated GFR > 60 BUN/Creatinine Ratio 33.7 H Glucose 128 H Calcium 9.5 Total Bilirubin 0.8 AST 49 ALT 38 Alkaline Phosphatase 141 H Total Protein 7.3 Albumin 3.8 Globulin 3.5 Albumin/Globulin Ratio 1.1 Assessment & Plan Assessment & Plan narrative: Acute comminuted and slightly displaced pelvic fracture involving left superior and inferior pubic rami. -IV Fluids -Hold Xarelto for now -Incentive spirometry -Pain medications as needed -Bowel regimen while on narcotics -Fall precaution -PT and OT evaluation on discharge Paroxysmal atrial fibrillation, status post Watchman procedure in 2019, rate controlled on Xarelto. Hold Xarelto for now. Telemetry. Hypothyroidism. Restart levothyroxine. Hypertension. Restart hydralazine and Entresto CHF/nonischemic cardiomyopathy. Restart Bumex and Entresto Depression. Restart risperidone and sertraline Time-Based Coding :: [TOTAL MINUTES] spent with patient and on the chart (including review of chart, obtaining history, exam, reviewing outside data, placing orders, documenting exam and treatment plan, and counseling patient) on [DATE]. Quality VTE Deep Vein Thrombosis/Pulmonary Embolism Present on Admission: No MIPS - Admit I confirm the patient?s Advance Care Plan is present, Code status is documented, Surrogate decision maker is in patient?s record [If Yes, STOP here]: Yes MIPS - Meds 'Current medications' to include all prescriptions, zlvg-wkk-[id number] products, herbals, cannabis/cannabidiol products, and vitamin/mineral/dietary (nutritional) supplements. I have utilized all available resources to obtain, update, or review the patient?s current medications. [If Yes, STOP here]: Yes
[2023-11-26] MEDS: HYDROMORPHONE 0.5 MG INJ IV (02:04)
--- NOTE | 2023-11-26 04:40 | PC.NURSE ---
fast food shift lead: Patient arrived from ED approximately 0130 via stretcher, slid to bed. Patient is alert & oriented to self, place, situation, & year; although is forgetful. Speech is slurred. Left hip is bruised. Patient is able to wiggle toes on left foot, sensation intact, pedal pulses present. VSS, SpO2 100% on RA. Denies SOB, CP, nausea, dizziness. Reports 3/10 L hip pain at rest, although pain sharply increases with movement/repositioning; medicated as ordered w/ relief. Oriented to call-light, plan of care ongoing.
[2023-11-26] MEDS: HYDROCODONE/ACET 5/325 TABLET 1 TAB PO ×3 (06:07→17:46)
[2023-11-26] MEDS: LEVOTHYROXINE 25 MCG TABLET PO (07:04)
[2023-11-26 08:20] LABS: Add Manual Diff / Slide Review NO; Basophils Absolute Auto 0 /uL (0-100); Basophils Percent Auto 0.5 % (0-2); Eosinophils Absolute Auto 100 /uL (0-450); Eosinophils Percent Auto 1.8 % (2-4); Hematocrit 31.8 % (41-53); Hemoglobin 11.2 g/dL (13.5-17.5); Lymphocytes Absolute Auto 1000 /uL (1100-4500); Lymphocytes Percent Auto 12.9 % (25-40); Mean Corpuscular HGB Conc 35.3 % (30-36); Mean Corpuscular Hemoglobin 33.1 PG (26-34); Mean Corpuscular Volume 93.9 fL (80-100); Monocytes Absolute Auto 500 /uL (0-900); Monocytes Percent Auto 7.4 % (3-14); Neutrophils Absolute Auto 5800 /uL (1500-7000); Neutrophils Percent Auto 77.4 % (50-75); Platelet Count 149 X10^3/uL (150-400); Red Blood Cell Count 3.38 X10^6/uL (4.5-5.9); Red Cell Distribution Width 14.1 % (11.6-14.8); White Blood Cell Count 7.4 X10^3/uL (4.5-11.0)
[2023-11-26 08:45] LABS: BUN Creatinine Ratio 29.1 (6-22); Blood Urea Nitrogen 30 mg/dL (9-20); Calcium 9.4 mg/dL (8.4-10.2); Carbon Dioxide 33 mmol/L (22-32); Chloride 102 mmol/L (98-107); Estimated Glomerular Filt Rate > 60 mL/min (>60); Glucose 121 mg/dL (80-110); HEMOLYSIS < 15 (0-50); Magnesium 1.5 mg/dL (1.6-2.3); Potassium 3.6 mmol/L (3.4-5.1); Sodium 138 mmol/L (137-145)
[2023-11-26] MEDS: BUMETANIDE 1 MG TABLET 2 MG PO (10:27)
[2023-11-26] MEDS: HYDRALAZINE 25 MG TABLET PO ×3 (10:27→20:36)
[2023-11-26] MEDS: ENOXAPARIN 40 MG/0.4 ML SYRINGE SUBCUT (10:28)
[2023-11-26] MEDS: risperiDONE 0.25 MG TABLET PO (10:28)
[2023-11-26] MEDS: ACETAMINOPHEN 325 MG TABLET PO ×3 (10:28→20:36)
[2023-11-26] MEDS: SERTRALINE 50 MG TABLET 25 MG PO (10:29)
[2023-11-26] MEDS: POTASSIUM CHLORIDE 20 MEQ TAB PO (10:29)
[2023-11-26] MEDS: DOCUSATE 100 MG CAPSULE PO ×2 (10:29→20:36)
[2023-11-26] MEDS: MAGNESIUM CHLORIDE 64 MG TABLET 128 MG PO (10:44)
--- NOTE | 2023-11-26 12:32 | PT-IP ANOTE ---
checked on pt this morning but pt stated that he wants pain medications first. will f/u this afternoon.
--- NOTE | 2023-11-26 14:00 | PT.IIE ---
Current Diagnoses Unspecified fracture of unspecified pubis, initial encounter for closed fracture (11/26/23) Surgical History (Last Reviewed 11/26/23 @ 00:19 by Bushra Marrufo MD) Hx of LASIK Status post cataract extraction and insertion of intraocular lens of left eye Medical History (Last Reviewed 11/26/23 @ 00:18 by Bushra Marrufo MD) Afib CVA (cerebral vascular accident) (~2013) Poor balance Spinal stenosis Tachycardia Physical Therapy Inpatient Evaluation/Re-Eval M1 PT/OT-IP Prior Functional Status Start: 11/26/23 12:32 Freq: NEEDED Status: Active Protocol: Document 11/26/23 15:00 [facility] (Rec: 11/26/23 15:15 [facility] [id number]) Medical Review Prior Functional Status Medical History Reviewed Yes Mobility and Gait spouse in room and provided info regarding pt: stated that pt was needing assist with all mobilities. uses a FWW for transfers. stated that pt spends most of his day on his electric w/c . able to ambulate with PT prior using FWW. Activities of Daily Living and IADL's Pt has assist for ADL needs, however try to get up on his own. Social History Household Members none Living Arrangements Assisted Living Number of Floors (Floors) One Floor Number of Stairs To Enter/Railing? pt lives at [facility] Home Environment Walk in Shower Home Equipment Front Wheel Walker,Power Wheelchair/Scooter,Shower Seat with Backrest,Hand Held Shower,Grab Bars Near Toilet, Grab Bars In Shower M2 PT-IP Current Condition Start: 11/26/23 12:32 Freq: NEEDED Status: Active Protocol: Document 11/26/23 14:00 AB (Rec: 11/26/23 17:21 AB [id number]) Physical Therapy Current Condition Current Condition Evaluation Date 11/26/23 Treatment Diagnosis s/p fall; L pubic rami fx; difficulty in walking Onset Date 11/26/23 M3 PT-IP Subjective Start: 11/26/23 12:32 Freq: NEEDED Status: Active Protocol: Document 11/26/23 14:00 AB (Rec: 11/26/23 17:21 AB [id number]) Subjective Physical Therapy Visit Type Type Initial Evaluation Visit Start Time 14:00 Visit Stop Time 14:55 Number of PROGRAMMING ENGINEER Visits 0 Physical Therapy Visit Comments Patient Comments agreeable to do PT Therapy Pain Assessment Pain When Pain Assessed At Rest Pain Present Pain Present Pain Reported Location left hip Scale Used pain scale not stated Pain Management Techniques Distraction,Modification of Treatment,Re-positioning, Timing of Activity with Medications M4 PT-IP Mobility and Gait Start: 11/26/23 12:32 Freq: NEEDED Status: Active Protocol: Document 11/26/23 14:00 AB (Rec: 11/26/23 17:21 AB [id number]) PT-Bed Mobility Assessment Supine to Sit Supine to Sit Maximum Assistance,2 Person Assistance,Head of Bed Elevated,Bedrails Sit to Supine Sit to Supine Total Assistance,2 Person Assistance Scooting Scooting to Edge of Bed Dependent PT-Transfer Assessment Sit to and From Stand Sit to and from Stand Maximum Assistance,Total Assistance,2 Person Assistance ,Use of Upper Extremities Equipment Transfer Assistive Device Gait Belt,Front Wheeled Walker Orthotic/Prosthetic Devices or Brace: No Comments Mobility Comments pt supine in bed. obtained PLOF and home set up from pt's spouse. pt completed supine to sit max A x 2 and max cues. mod to max A for sitting balance on EOB. increase lateral trunk lean to the L. pt completed sit to stand x 3 attempts needing max Ax 2 to total Ax 2 and max cues. pt unable to get to upright standing. elevated height of bed up and pt completed sit to stand max Ax 2 and max cues but with increase LE pushing on bed for support. pt continues to have stooped posture. pt tolerated ~ 5 sec standing and has to sit back on EOB. assisted pt to scoot towards HOB total A x 2 and max cues side scooting. completed sit to supine total A x 2 and max cues. positioned pt in bed. call light and table placed within reach. Gait Assessment Comments Gait Comments unable at this time PT-Balance Assessment Sitting Balance and Reactions Static Sitting Balance Ability Fair Dynamic Sitting Balance Ability Poor Standing Balance and Reactions Static Standing Balance Ability Poor Dynamic Standing Balance Ability Poor Device Used FWW M5 PT-IP Objective Assessments Start: 11/26/23 12:32 Freq: NEEDED Status: Active Protocol: Document 11/26/23 14:00 AB (Rec: 11/26/23 17:21 AB [id number]) Orientation Orientation/Cognition Level of Alertness Confusional State Orientation Name Language Function Ability Hard of Hearing Safety Awareness Decreased Safety Awareness Memory Description Short Term Impaired,Piping Design Specialist Impaired Gross Range of Motion Lower Extremity ROM Assessment Within Functional Limits Impairments c/o pain with LE movement Strength Lower Extremity Strength Assessment Bilaterally Impaired Hip 3-/5 Knee 3+/5 Comments Strength Comments pain limiting movement and strength Muscle Tone Muscle Tone WNL Yes M6 PT-IP Treatment Start: 11/26/23 12:32 Freq: NEEDED Status: Active Protocol: Document 11/26/23 14:00 AB (Rec: 11/26/23 17:21 AB [id number]) Physical Therapy Treatment Education Education Provided Safety M7 PT-IP Assessment and Plan Start: 11/26/23 12:32 Freq: NEEDED Status: Active Protocol: Document 11/26/23 14:00 AB (Rec: 11/26/23 17:21 AB [id number]) PT Summary Assessment and Plan Potential Rehabilitation Potential Fair Status of Condition at Evaluation Evolving Summary Impairments Pain,ROM,Strength,Balance, Coordination,Sensation,Tone, Cognition,Bed Mobility, Transfers,Gait,Activity Tolerance Assessment Summary pt si a 78 y/o M s/p fall and sustained a L superior/ inferior pubic rami fx. pt is WBAT. pt lives at [facility] facility. pt needing max Ax 2 to total A x 2 with mobility. d/c plan depending on progress and if [facility] will be able to provide pt necessary assistance needed. Recommending mechanical lift transfers with nursing staff at this time. will continue to assess. Goals Bed Mobility Goal Minimal Assistance Transfer Goal Minimal Assistance,Front Wheeled Walker Gait Goal Minimal Assistance,Front Wheel Walker Gait Distance 25 Other Goals improve bed mobility, transfers, ambulation using FWW 50 ft CGA Days to Meet Goals 10 Frequency of Treatment Frequency Of Treatment Once a Day Treatment Plan Physical Therapy Treatment Plan Bed Mobility Training,Transfer Training,Gait Training, Therapeutic Exercise,Balance Retraining,Discharge Planning, Hot or Cold Pack,Neuromuscular Re-ed,Coordination Retraining ,Manual Therapy Precautions Other Precautions falls Weight Bearing Status Weight Bearing Status Weight Bear as Tolerated Allowed Weight Bearing Amount (enter % LLE WBAT or #) (%) Recommendations To Nursing Amount of Assist Needed Mechanical Lift Discharge Recommendations PT Discharge Recommendations Home with 17/09 Assist Available,Home Health,SNF Rehab Transportation Needs at Discharge Wheelchair/Cabulance,Stretcher /Ambulance
--- NOTE | 2023-11-26 14:40 | OT.IP.EVAL ---
Current Diagnoses Unspecified fracture of unspecified pubis, initial encounter for closed fracture (11/26/23) Past Medical History (Last Reviewed 11/26/23 @ 00:18 by Bushra Marrufo MD) Afib CVA (cerebral vascular accident) (~2013) Poor balance Spinal stenosis Tachycardia Surgical History (Last Reviewed 11/26/23 @ 00:19 by Bushra Marrufo MD) Hx of LASIK Status post cataract extraction and insertion of intraocular lens of left eye Occupational Therapy Inpatient Evaluation/Re-Eval M1 PT/OT-IP Prior Functional Status Start: 11/26/23 12:32 Freq: NEEDED Status: Active Protocol: Document 11/26/23 15:00 [facility] (Rec: 11/26/23 15:15 [facility] [id number]) Medical Review Prior Functional Status Medical History Reviewed Yes Mobility and Gait Per PT note-spouse in room and provided info regarding pt: stated that pt was needing assist with all mobilities. uses a FWW for transfers. stated that pt spends most of his day on his electric w/c . able to ambulate with PT prior using FWW. Activities of Daily Living and IADL's Pt has assist for ADL needs, however try to get up on his own. Social History Household Members none Living Arrangements Assisted Living Number of Floors (Floors) One Floor Number of Stairs To Enter/Railing? [facility] [place] Home Environment Walk in Shower Home Equipment Front Wheel Walker,Power Wheelchair/Scooter,Shower Seat with Backrest,Hand Held Shower,Grab Bars Near Toilet, Grab Bars In Shower M2 OT-IP Current Condition Start: 11/26/23 15:00 Freq: Status: Active Protocol: Document 11/26/23 15:00 [facility] (Rec: 11/26/23 15:15 [facility] [id number]) Occupational Therapy Current Condition Current Condition Evaluation Date 11/26/23 Treatment Diagnosis Acute comminuted and slight displaced pelvic fx involving left sup. & inf pubic rami Diagnosis Onset Date Weight Bearing Status Weight Bearing Status Weight Bear as Tolerated M3 OT- IP Subjective and Pain Start: 11/26/23 15:00 Freq: Status: Active Protocol: Document 11/26/23 15:00 [facility] (Rec: 11/26/23 15:15 [facility] [id number]) OT- Subjective Occupational Therapy Visit Type Type Initial Evaluation Visit Start Time 14:10 Visit Stop Time 14:40 Occupational Therapy Visit Comments Patient Comments Pt agreed to try to get up. Patient/Caregiver Goals To get better. OT Pain Assessment Pain Present Pain Present Pain Reported Location left hip Pain Behaviors Facial Grimacing,Holding Area, Wincing M4 OT- IP ADL's Start: 11/26/23 15:00 Freq: Status: Active Protocol: Document 11/26/23 15:00 [facility] (Rec: 11/26/23 15:15 [facility] [id number]) OT [id number] Comments OT Self-Feeding Comments Set-up assist. OT ADL-Grooming Comments OT Grooming Comments Not performed, will benefit from set-up. OT ADL-Oral Care Comments Oral Care Comments Not performed. OT ADL-Dressing General Eval Lower Body Dressing Ability Maximum Assistance Areas Needing Assistance Socks OT ADL-Toileting General Evaluation Toileting Ability Total Assistance Comments OT Toileting Comments Pt has an external catheter on . OT ADL-Bathing Comments OT Bathing Comments Sponge bath more appropriate at this time. M5 OT- IP IADL's Start: 11/26/23 15:00 Freq: Status: Active Protocol: Document 11/26/23 15:00 [facility] (Rec: 11/26/23 15:15 [facility] [id number]) OT-Instrumental Activities of Daily Living Home Safety Awareness Awareness of Need for Assistance at Home Decreased Awareness Ability to Problem Solve Emergency Unable to Problem Solve Situations Medication Management Medication Management Caregiver Administers Money Management Money Management Caregiver Provides Assistance Meal Preparation Meal Preparation Caregiver Provides Assist Braiding Operator Braiding Operator Caregiver Provides Assist M6 OT- IP Functional Cognition Start: 11/26/23 15:00 Freq: Status: Active Protocol: Document 11/26/23 15:00 [facility] (Rec: 11/26/23 15:15 [facility] [id number]) Cognitive Factors Limiting Selfcare Function Cognitive Ability Level of Alertness Alert Patient Orientation Name Attention Span Ability Capable of Focused Attention, Capable of Sustained Attention Ability to Follow Commands Able to Follow One Step Commands with Increased Time, Able to Follow One Step Commands with Repetition Cognitive Comments Cognitive Assessment Comments Pt able to follow commands for ADL and mobility needs. Pt admits that at home he tries to get up without assist. Pt has decreased safety awareness. OT- Vision and Hearing OT- Vision Assessment Visual Acuity Glasses For Reading M7 OT- IP Mobility and Balance Start: 11/26/23 15:00 Freq: Status: Active Protocol: Document 11/26/23 15:00 [facility] (Rec: 11/26/23 15:15 [facility] [id number]) OT- Bed Mobility Assessment Supine to Sit Supine to Sit Assist Maximum Assistance,2 Person Assistance Sit to Supine Sit to Supine Assist Maximum Assistance,Total Assistance,2 Person Assistance OT-Transfer Assessment Sit to and From Stand Sit to and from Stand Maximum Assistance,Total Assistance,2 Person Assistance Comments Mobility Comments MAXx2 to get to the edge of the bed with heavy use of green pad and assist to get his trunk upright. MAX/TOTal assist x2 to stand due to weakness to the FWW and not able to take any steps at this time. Total assist x2 to assist to scoot pt up to the head of the bed. At this time pt will need use of a mechanical lift for transfers. OT- Balance Assessment Sitting Balance and Reactions Static Sitting Balance Ability Fair Dynamic Sitting Balance Ability Poor Standing Balance and Reactions Static Standing Balance Ability Poor Dynamic Standing Balance Ability Poor Comments Other Balance Tests/Deviations/Treatment While sitting pt tends to lean : slightly posteriorly and to the left. M8 OT- IP Objective Assessments Start: 11/26/23 15:00 Freq: Status: Active Protocol: Document 11/26/23 15:00 [facility] (Rec: 11/26/23 15:15 [facility] [id number]) OT Gross Range of Motion Upper Extremity Range of Motion Assessment Bilaterally Impaired ROM Impairments Decreased at end ROM OT Strength Upper Extremity Strength Assessment Bilaterally Impaired Comments Strength Comments BUE 3+/5 to 4/5 from proximal to distal. M9 OT- IP Assessment and Plan Start: 11/26/23 15:00 Freq: Status: Active Protocol: Document 11/26/23 15:00 [facility] (Rec: 11/26/23 15:15 [facility] [id number]) OT Summary Assessment and Plan Potential Rehabilitation Potential Fair Analytic Complexity at Evaluation Moderate Summary OT Impairments Pain,Range of Motion,Strength, Balance,Functional Cognition, Functional Mobility,Self- Feeding,Grooming,Dressing, Toileting,Bathing,Toilet Transfers,Shower Transfers, Activity Tolerance Progress Towards Goals Slow Progress due to Pain,Slow Progress due to Medical Issues,Slow Progress due to Activity Tolerance,Slow Progress due to Cognition Assessment Summary Pt MOD complexity and main barriers are weakness,pain, and now needing use of mechanical lift for transfers at this time. Per chart pt lives as [facility] and staff prior able to assist for transfers. Pt will benefit from skilled rehab to improve his mobility needs prior to going home. Goals Self-Feeding Goal Standby Assistance Grooming Goal Standby Assistance Dressing Goal Moderate Assistance Toileting Goal Moderate Assistance Toilet Transfer Goal Moderate Assistance Shower Transfer Goal Moderate Assistance Days to Meet Goals 25 Frequency of Treatment Other frequency 5x/week Treatment Plan OT Treatment Plan ADL Training,Functional Cognition Training,Functional Mobility,Patient/Family Education,Discharge Planning Other Treatment Recommendations and Next Transfer to the [facility] with Treatment Focus MAXAx2. Discharge Recommendations OT Discharge Recommendations SNF Rehab Transportation Needs at Discharge Wheelchair/Cabulance
--- NOTE | 2023-11-26 14:53 | CM.DANOTE ---
Initial DCP Assessment Visit Note Reviewed EMR and team rounds for pt's medical status and updates. Met with pt and spouse at bedside to introduce self and role. Pt does have significant dementia, resides at [facility], his still resides in their home on [address]. Plan is evolving for d/c, initially we were going to d/c with [facility], however, he was unable to get out of bed with OT today, is needing a giovanni lift, even with 2-person assist. Will discuss SNF rehab with his in the am on Sat and submit referral to the facility of their preference. Payor: Medicare PCP: Dr. Waters Pt is a 78 year-old M with a PMH of dementia, Afib on Eliquis, CVA, and CAD. He presented to the ED last evening via EMS after facility staff noted that he was complaining of hip pain around dinner time, even though he had not complained of it earlier in the day. The ED hip x-ray showed a R-hip fracture, which was deemed non-surgical. He was started on pain medication, will work with therapies when able, however has not been able to get out of bed at this time. DCP will continue to monitor and assist with SNF rehab referral and d/c once he's medically stable. Discharge Planning/Care Management CM Discharge Assessment Start: 11/26/23 14:48 Freq: Status: Active Protocol: Document 11/26/23 14:49 [facility] (Rec: 11/26/23 14:52 [facility] [id number]) Discharge Planning Assessment Assigned Assistant Surveyor CHARISSE Mata Advance Directives? Yes: ALICE Advance Directives on File Yes History Provided By Family Member,Medical Record Has Patient been admitted in last 30 No days? Prior Living Arrangements Assisted Living Household Members none Comment Pt resides at [facility]. Type of transporation used prior to Relies on Others admit Facility Name Admitted From: [facility] Willing to Return to Facility? Yes Independent with ADL's No Is patient alert and oriented? No: Oriented to self only. Needs Assistance With Bathing,Grooming,Meal Prep, Toileting,Managing Medications ,Home Chores / Shopping Caregiver for Another No DME Already Rented / Owned Bath Bench,Wheelchair,Elevated Toilet Seat,FWW / Walker Comment Home to [facility]. Barriers to Discharge No Discharge Plan Assisted Living Facility [facility] Physical Therapy Transportation Arrangement Private pay cabulance. Referrals Initiated Home Health If patient plan is home with home health Yes : Has signed face to face form been completed? Medicare Choice List Provided Yes Medicare choice list reviewed on [employer] electronic tablet with Whiteboard Updated in Patient Room with Yes name and ext. # of Assistant Surveyor Review Status In Process Please Provide Date Initial DC 11/26/23 Assessment Was Performed
--- NOTE | 2023-11-26 16:44 | P.PN_ITS ---
Subjective Subjective Interval history: 78 M admitted with super and inferior pubic rami fractures. Pain is a bit better controlled today, though had difficulty with ambulation still with therapy today. Exam Vital Signs (past 8 hours): - 11/26/23 12:00 11/26/23 16:00 Temperature 98 F 98.1 F Pulse Rate 73 73 Respiratory Rate 18 18 Blood Pressure 112/46 L 107/47 L Pulse Oximetry 100 99 Oxygen Delivery Method Room Air Oxygen Flow Rate 0 Narrative Exam Narrative: Gen: No acute distress CV: RRR Pulm : CTA b/l Abd: S NT ND Ext: no edema Objective Labs 11/26/23 07:35 11/26/23 07:35 Labs: Laboratory Results - last 24 hr 11/26/23 11/26/23 00:25 07:35 WBC 8.7 7.4 RBC 3.73 L 3.38 L Hgb 12.3 L 11.2 L Hct 35.2 L 31.8 L MCV 94.3 93.9 MCH 32.9 33.1 MCHC 34.9 35.3 RDW 14.5 14.1 Plt Count 163 149 L Neut % (Auto) 74.3 77.4 H Lymph % (Auto) 16.2 L 12.9 L Gaston % (Auto) 8.1 7.4 Eos % (Auto) 1.1 L 1.8 L Baso % (Auto) 0.3 0.5 Neut # (Auto) 6400 5800 Lymph # (Auto) 1400 1000 L Gaston # (Auto) 700 500 Eos # (Auto) 100 100 Baso # (Auto) 0 0 Sodium 139 138 Potassium 3.6 3.6 Chloride 104 102 Carbon Dioxide 31 33 H BUN 35 H 30 H Creatinine 1.04 1.03 Estimated GFR > 60 > 60 BUN/Creatinine Ratio 33.7 H 29.1 H Glucose 128 H 121 H Calcium 9.5 9.4 Magnesium 1.5 L Total Bilirubin 0.8 AST 49 ALT 38 Alkaline Phosphatase 141 H Total Protein 7.3 Albumin 3.8 Globulin 3.5 Albumin/Globulin Ratio 1.1 PFSH Medical History Tachycardia Afib CVA (cerebral vascular accident) (~2013) Spinal stenosis Poor balance Surgical History Status post cataract extraction and insertion of intraocular lens of left eye Hx of LASIK Social History household members: none Smoking Status: Never smoker alcohol intake: current Assessment & Plan Assessment & Plan narrative: Acute comminuted and slightly displaced pelvic fracture involving left superior and inferior pubic rami. -stop IV fluids -Hold Xarelto for now, possible hematoma monitor h/h. -Incentive spirometry -Pain medications as needed -Bowel regimen while on narcotics -Fall precaution -PT and OT evaluation to continue, possible SNF Paroxysmal atrial fibrillation, status post Watchman procedure in 2019, rate controlled on Xarelto. Hold Xarelto for now. Telemetry. Hypothyroidism. continue levothyroxine. Hypertension. continue hydralazine, will hold entresto for now with low normal BP today. CHF/nonischemic cardiomyopathy. hold diuretic and entresto for now. Depression. Restart risperidone and sertraline Code: DNR, surrogate is patient's spouse Additional history obtained from discussion with therapists and comp field case manager today, along with bedside RN. Dispo: Inpatient, likely discharge to SNF in a couple of days. Time-Based Coding :: [TOTAL MINUTES] spent with patient and on the chart (including review of chart, obtaining history, exam, reviewing outside data, placing orders, documenting exam and treatment plan, and counseling patient) on [DATE]. Quality VTE Deep Vein Thrombosis/Pulmonary Embolism Present on Admission: No
[2023-11-26] MEDS: risperiDONE 0.25 MG TABLET 0.5 MG PO (20:35)
[2023-11-27] VITALS: BP 114/56; PULSE 71; RESP 17; TEMP 36.7; O2SAT 98
[2023-11-27 04:00] VITALS: BP 112/50; PULSE 68; RESP 17; TEMP 36.7; O2SAT 98
[2023-11-27] MEDS: LEVOTHYROXINE 25 MCG TABLET PO (05:46)
[2023-11-27 08:00] VITALS: BP 116/56; PULSE 64; RESP 16; TEMP 36.4; O2SAT 96
[2023-11-27 08:48] LABS: BUN Creatinine Ratio 31.9 (6-22); Blood Urea Nitrogen 36 mg/dL (9-20); Calcium 9.2 mg/dL (8.4-10.2); Carbon Dioxide 30 mmol/L (22-32); Chloride 102 mmol/L (98-107); Estimated Glomerular Filt Rate > 60 mL/min (>60); Glucose 99 mg/dL (80-110); HEMOLYSIS < 15 (0-50); Magnesium 1.6 mg/dL (1.6-2.3); Potassium 3.6 mmol/L (3.4-5.1); Sodium 137 mmol/L (137-145)
[2023-11-27] MEDS: SERTRALINE 50 MG TABLET 25 MG PO (09:43)
[2023-11-27] MEDS: POTASSIUM CHLORIDE 20 MEQ TAB PO (09:43)
[2023-11-27] MEDS: MAGNESIUM CHLORIDE 64 MG TABLET 128 MG PO (09:43)
[2023-11-27] MEDS: HYDROCODONE/ACET 5/325 TABLET 1 TAB PO (09:44)
[2023-11-27] MEDS: ENOXAPARIN 40 MG/0.4 ML SYRINGE SUBCUT (09:44)
[2023-11-27] MEDS: DOCUSATE 100 MG CAPSULE PO ×2 (09:45→20:32)
[2023-11-27] MEDS: ACETAMINOPHEN 325 MG TABLET PO ×3 (09:45→20:32)
[2023-11-27] MEDS: risperiDONE 0.25 MG TABLET PO (09:45)
--- NOTE | 2023-11-27 10:50 | DIET.CONS ---
Dietary Consultation Note Admission Date: 11/26/2023 01:00 Assessment: 78 y M admitted for hip fracture, non-surgical. PMH of dementia, CVA w/ aphasia. Nutrition screened for low MNA score. Met w/ pt at bedside. Reports he is hungry, but notes coughing with eating. Unsure about UBW/weight loss. Per RN, pt has been recc dysphagia diet in past, but pt and prefer to have pt on regular diet. RN reports he did better with east [place]ore[place] toast over scrambled eggs. Ate 75-100% of meals yesterday that included items suchs as chicken, mashed potatoes, steamed broccoli, chicken sausage, fruit, [place] toast. Ht: 177.8 cm Wt: 68 kg BMI: 21.4 UBW: 73.482 kg on 03/09/20, no recent weights per EMR Last BM: 11/25/23 (11/26/23 02:35) MNA: 6 John Score: 18 Diet: 11/26/23 Breakfast Heart Healthy Diet Diet Modifications: Nutrition Percent Meal Consumed 75% 11/26/23 18:00 Percent Meal Consumed 100% 11/26/23 09:00 Labs: RBC 3.38 X10^6/uL (4.5-5.9) L 11/26/23 07:35 Hgb 11.2 g/dL (13.5-17.5) L 11/26/23 07:35 Hct 31.8 % (41-53) L 11/26/23 07:35 Creatinine 1.13 mg/dL (0.66-1.25) 11/27/23 08:23 Nutrition Diagnosis: BMI underweight for age r/t inadequate oral intake aeb BMI 21.5 Interventions: -ONS with dinner EER: [id number] (25-28 kcals/kg), 70 g protein (1 g/kg per age) Monitoring/Evaluations: po intakes Electronically Signed by: Bindu Burgos 11/27/23 10:50 Clinical Dietitian [address] [id number]
--- NOTE | 2023-11-27 11:25 | PT.IPTN ---
Current Diagnoses Unspecified fracture of unspecified pubis, initial encounter for closed fracture (11/26/23) Physical Therapy Treatment Note M2 PT-IP Current Condition Start: 11/26/23 12:32 Freq: NEEDED Status: Active Protocol: Document 11/26/23 14:00 AB (Rec: 11/26/23 17:21 AB [id number]) Physical Therapy Current Condition Current Condition Evaluation Date 11/26/23 Treatment Diagnosis s/p fall; L pubic rami fx; difficulty in walking Onset Date 11/26/23 M3 PT-IP Subjective Start: 11/26/23 12:32 Freq: NEEDED Status: Active Protocol: Document 11/27/23 11:56 TS (Rec: 11/27/23 12:08 TS [id number]) Subjective Physical Therapy Visit Type Type Treatment Note Visit Start Time 11:25 Visit Stop Time 11:54 Number of SAMPLER TESTER Visits 1 Physical Therapy Visit Comments Patient Comments Pt found resting in bed, is agreeable to get up to the chair. Therapy Pain Assessment Pain When Pain Assessed At Rest Pain Present Pain Present Pain Reported M4 PT-IP Mobility and Gait Start: 11/26/23 12:32 Freq: NEEDED Status: Active Protocol: Document 11/27/23 11:56 TS (Rec: 11/27/23 12:08 TS [id number]) PT-Bed Mobility Assessment Supine to Sit Supine to Sit Maximum Assistance,2 Person Assistance,Head of Bed Elevated,Bedrails Scooting Scooting to Edge of Bed Dependent PT-Transfer Assessment Sit to and From Stand Sit to and from Stand Maximum Assistance,2 Person Assistance Equipment Transfer Assistive Device Gait Belt,Front Wheeled Walker Orthotic/Prosthetic Devices or Brace: No Transfers Transfer Destination Chair Transfer Technique Stand Pivot Transfer Ability Level of Assist Maximum Assistance,2 Person Assistance,Use of Upper Extremities Comments Mobility Comments Supine to sit with HOB elevated 50D MaxA x2, requires assist uprightin trunk and LLE assist. Pt sat EOB SBA with BUE support. STS with FWW x1 MaxA x2, pt has some buckling on LLE, cues for upright posture. He performs stand pivot to chair with MaxA x2 with cues for steps and tactile cues for management of FWW. Pt sat in chair, was left with nursing tending to needs. Gait Assessment Comments Gait Comments pivot transfer to chair. PT-Balance Assessment Sitting Balance and Reactions Static Sitting Balance Ability Fair Dynamic Sitting Balance Ability Poor Standing Balance and Reactions Static Standing Balance Ability Poor Dynamic Standing Balance Ability Poor Device Used FWW M5 PT-IP Objective Assessments Start: 11/26/23 12:32 Freq: NEEDED Status: Active Protocol: Document 11/26/23 14:00 AB (Rec: 11/26/23 17:21 AB [id number]) Orientation Orientation/Cognition Level of Alertness Confusional State Orientation Name Language Function Ability Hard of Hearing Safety Awareness Decreased Safety Awareness Memory Description Short Term Impaired,Pickup Driver Impaired Gross Range of Motion Lower Extremity ROM Assessment Within Functional Limits Impairments c/o pain with LE movement Strength Lower Extremity Strength Assessment Bilaterally Impaired Hip 3-/5 Knee 3+/5 Comments Strength Comments pain limiting movement and strength Muscle Tone Muscle Tone WNL Yes M6 PT-IP Treatment Start: 11/26/23 12:32 Freq: NEEDED Status: Active Protocol: Document 11/27/23 11:56 TS (Rec: 11/27/23 12:08 TS [id number]) Physical Therapy Treatment Education Education Provided Safety M7 PT-IP Assessment and Plan Start: 11/26/23 12:32 Freq: NEEDED Status: Active Protocol: Document 11/27/23 11:56 TS (Rec: 11/27/23 12:08 TS [id number]) PT Summary Assessment and Plan Potential Rehabilitation Potential Fair Summary Impairments Pain,ROM,Strength,Balance, Coordination,Sensation,Tone, Cognition,Bed Mobility, Transfers,Gait,Activity Tolerance Progress Towards Goals Slow Progress due to Pain Assessment Summary Roly is making slow progress with his mobility. He requires MaxA x2 for all mobility. He progressed to a stand pivot with the FWW to the chair this session. Standing balance is poor and he requires lots of cueing. He follows directions most of the time. PT is recommending SNF. Goals Bed Mobility Goal Minimal Assistance Transfer Goal Minimal Assistance,Front Wheeled Walker Gait Goal Minimal Assistance,Front Wheel Walker Gait Distance 25 Other Goals improve bed mobility, transfers, ambulation using FWW 50 ft CGA Days to Meet Goals 10 Frequency of Treatment Frequency Of Treatment Once a Day Treatment Plan Physical Therapy Treatment Plan Bed Mobility Training,Transfer Training,Gait Training, Therapeutic Exercise,Balance Retraining,Discharge Planning, Hot or Cold Pack,Neuromuscular Re-ed,Coordination Retraining ,Manual Therapy Precautions Other Precautions falls Weight Bearing Status Weight Bearing Status Weight Bear as Tolerated Allowed Weight Bearing Amount (enter % LLE WBAT or #) (%) Recommendations To Nursing Amount of Assist Needed Mechanical Lift Discharge Recommendations PT Discharge Recommendations SNF Rehab Transportation Needs at Discharge Wheelchair/Cabulance
[2023-11-27 12:00] VITALS: BP 105/38; PULSE 68; RESP 18; TEMP 36.5; O2SAT 96
[2023-11-27] MEDS: OXYCODONE IR 5 MG TABLET PO ×2 (13:30→18:04)
--- NOTE | 2023-11-27 14:13 | CM.DPC ---
DCP Cont. Reviewed EMR and team rounds for status updates. Per PT/OT, pt is unable to bear weight and will require SNF rehab at d/c before returning to [facility]. Sent referral to [facility], they can accept likely on Saturday and anticipate a bed being available at that time. Updated [facility], spouse of plan.
--- NOTE | 2023-11-27 14:51 | PM.PN.1 ---
Subjective Subjective Interval history: 78 M admitted with super and inferior pubic rami fractures. Pain is a bit better controlled today, though had difficulty with ambulation still with therapy today. Will change to oxycodone to see if any improvement. Exam Vital Signs (past 8 hours): - 11/27/23 07:00 11/27/23 08:00 11/27/23 12:00 Temperature 97.6 F 97.7 F Pulse Rate 64 68 Respiratory Rate 16 18 Blood Pressure 116/56 L 105/38 L Pulse Oximetry 96 96 Oxygen Delivery Method Room Air Oxygen Delivery Method Room Air Oxygen Flow Rate 0 Narrative Exam Narrative: Gen: No acute distress CV: RRR Pulm : CTA b/l Abd: S NT ND Ext: no edema Objective Labs 11/26/23 07:35 11/27/23 08:23 Labs: Laboratory Results - last 24 hr 11/27/23 08:23 Sodium 137 Potassium 3.6 Chloride 102 Carbon Dioxide 30 BUN 36 H Creatinine 1.13 Estimated GFR > 60 BUN/Creatinine Ratio 31.9 H Glucose 99 Calcium 9.2 Magnesium 1.6 PFSH Medical History Tachycardia Afib CVA (cerebral vascular accident) (~2013) Spinal stenosis Poor balance Surgical History Status post cataract extraction and insertion of intraocular lens of left eye Hx of LASIK Social History household members: none Smoking Status: Never smoker alcohol intake: current Assessment & Plan Assessment & Plan narrative: Acute comminuted and slightly displaced pelvic fracture involving left superior and inferior pubic rami. -stopped IV fluids -Hold Xarelto for now, possible hematoma monitor h/h. -Incentive spirometry -Pain medications as needed, still with difficult to control pain, will change to oxycodone today to see if any improvement. -Bowel regimen while on narcotics -Fall precaution -PT and OT evaluation to continue, SNF Paroxysmal atrial fibrillation, status post Watchman procedure in 2019, rate controlled on Xarelto. Hold Xarelto for now. Can stop telemetry. Did have a few runs of NSVT. Will start beta william therapy. Hypothyroidism. continue levothyroxine. Hypertension. will stop hydralazine with soft BP, will hold entresto for now with low normal BP today. CHFrEF/nonischemic cardiomyopathy. hold diuretic and entresto for now. Patient's returned goods inspector wished to have patient on beta william. BP remains soft. Will start 25 mg of metoprolol daily. Depression. Restart risperidone and sertraline Code: DNR, surrogate is patient's spouse Additional history obtained from discussion with therapists and piano case and bench assembler today, along with bedside RN. Dispo: Inpatient, likely discharge to SNF in a couple of days. Time-Based Coding :: [TOTAL MINUTES] spent with patient and on the chart (including review of chart, obtaining history, exam, reviewing outside data, placing orders, documenting exam and treatment plan, and counseling patient) on [DATE]. Quality VTE Deep Vein Thrombosis/Pulmonary Embolism Present on Admission: No
--- NOTE | 2023-11-27 15:27 | OT.IPNOTE ---
Pt just hoyered back to bed and sound asleep, to check on pt tomorrow.
[2023-11-27 16:00] VITALS: BP 116/65; PULSE 68; RESP 17; TEMP 36.9; O2SAT 98
[2023-11-27 19:55] VITALS: BP 133/63; PULSE 74; RESP 17; TEMP 36.6; O2SAT 100
[2023-11-27] MEDS: risperiDONE 0.25 MG TABLET 0.5 MG PO (20:32)
[2023-11-28] VITALS (7 sets, daily range): BP systolic 100–128; BP diastolic 42–68; PULSE 65–87; RESP 16–18; TEMP 36.4–37.3; O2SAT 93–99
--- NOTE | 2023-11-28 05:01 | PC.NURSE ---
Addendum entered by Drea Fitzpatrick R.N. 11/28/23 06:19: Pt refused morning labs, Dr. Waggoner aware. Original Note: Patient pulled out IV, noted dried blood to left AC area. Patient refused to allow me to clean his arm with a warm wash cloth. I asked if he would do it if I left a warm washcloth for him, he stated, yeah, I like to do things myself. Left a warm washcloth at bedside. Per Dr. Waggoner, ok to leave IV out.
[2023-11-28] MEDS: ACETAMINOPHEN 325 MG TABLET PO ×2 (08:38→20:33)
[2023-11-28] MEDS: ENOXAPARIN 40 MG/0.4 ML SYRINGE SUBCUT (08:39)
[2023-11-28] MEDS: SERTRALINE 50 MG TABLET 25 MG PO (08:40)
[2023-11-28] MEDS: risperiDONE 0.25 MG TABLET PO (08:40)
[2023-11-28] MEDS: METOPROLOL ER 25 MG TABLET PO (08:40)
[2023-11-28] MEDS: POTASSIUM CHLORIDE 20 MEQ TAB PO (08:40)
[2023-11-28] MEDS: DOCUSATE 100 MG CAPSULE PO ×2 (08:41→20:33)
--- NOTE | 2023-11-28 09:00 | PT.IPTN ---
Current Diagnoses Unspecified fracture of unspecified pubis, initial encounter for closed fracture (11/26/23) Physical Therapy Treatment Note M2 PT-IP Current Condition Start: 11/26/23 12:32 Freq: NEEDED Status: Active Protocol: Document 11/26/23 14:00 AB (Rec: 11/26/23 17:21 AB [id number]) Physical Therapy Current Condition Current Condition Evaluation Date 11/26/23 Treatment Diagnosis s/p fall; L pubic rami fx; difficulty in walking Onset Date 11/26/23 M3 PT-IP Subjective Start: 11/26/23 12:32 Freq: NEEDED Status: Active Protocol: Document 11/28/23 09:26 TS (Rec: 11/28/23 09:44 TS [id number]) Subjective Physical Therapy Visit Type Type Treatment Note Visit Start Time 09:00 Visit Stop Time 09:27 Number of LICENSING SPECIALIST Visits 2 Physical Therapy Visit Comments Patient Comments Pt found resting in bed, he is agreeable to PT. Therapy Pain Assessment Pain When Pain Assessed At Rest Pain Present Pain Present Pain Reported M4 PT-IP Mobility and Gait Start: 11/26/23 12:32 Freq: NEEDED Status: Active Protocol: Document 11/28/23 09:26 TS (Rec: 11/28/23 09:44 TS [id number]) PT-Bed Mobility Assessment Supine to Sit Supine to Sit Maximum Assistance,2 Person Assistance,Head of Bed Elevated,Bedrails Scooting Scooting to Edge of Bed Dependent PT-Transfer Assessment Sit to and From Stand Sit to and from Stand Maximum Assistance,2 Person Assistance Equipment Transfer Assistive Device Gait Belt,Front Wheeled Walker Orthotic/Prosthetic Devices or Brace: No Transfers Transfer Destination Chair Transfer Technique Stand Pivot Transfer Ability Level of Assist Maximum Assistance,2 Person Assistance,Use of Upper Extremities Comments Mobility Comments Supine to sit MaxA x2 with HEEL BUILDER for uprighting to EOB. STS with FWW MaxA x2, pt requires cues for setup. Stand pivot to chair with FWW MaxA x2 with max cueing for sequencing. Pt was left in bed, all needs met . Gait Assessment Comments Gait Comments pivot transfer to chair. PT-Balance Assessment Sitting Balance and Reactions Static Sitting Balance Ability Fair Dynamic Sitting Balance Ability Poor Standing Balance and Reactions Static Standing Balance Ability Poor Dynamic Standing Balance Ability Poor Device Used FWW M5 PT-IP Objective Assessments Start: 11/26/23 12:32 Freq: NEEDED Status: Active Protocol: Document 11/26/23 14:00 AB (Rec: 11/26/23 17:21 AB [id number]) Orientation Orientation/Cognition Level of Alertness Confusional State Orientation Name Language Function Ability Hard of Hearing Safety Awareness Decreased Safety Awareness Memory Description Short Term Impaired,Residential Impaired Gross Range of Motion Lower Extremity ROM Assessment Within Functional Limits Impairments c/o pain with LE movement Strength Lower Extremity Strength Assessment Bilaterally Impaired Hip 3-/5 Knee 3+/5 Comments Strength Comments pain limiting movement and strength Muscle Tone Muscle Tone WNL Yes M6 PT-IP Treatment Start: 11/26/23 12:32 Freq: NEEDED Status: Active Protocol: Document 11/28/23 09:26 TS (Rec: 11/28/23 09:44 TS [id number]) Physical Therapy Treatment Education Education Provided Safety M7 PT-IP Assessment and Plan Start: 11/26/23 12:32 Freq: NEEDED Status: Active Protocol: Document 11/28/23 09:26 TS (Rec: 11/28/23 09:44 TS [id number]) PT Summary Assessment and Plan Potential Rehabilitation Potential Fair Summary Progress Towards Goals Slow Progress due to Pain Assessment Summary Roly is making slow progress with his mobility. He requires MaxA x2 for all mobility. He progressed to a stand pivot with the FWW to the chair this session. Standing balance is poor and he requires lots of cueing. He follows directions most of the time. PT is recommending SNF. Goals Bed Mobility Goal Minimal Assistance Transfer Goal Minimal Assistance,Front Wheeled Walker Gait Goal Minimal Assistance,Front Wheel Walker Gait Distance 25 Other Goals improve bed mobility, transfers, ambulation using FWW 50 ft CGA Days to Meet Goals 10 Frequency of Treatment Frequency Of Treatment Once a Day Treatment Plan Physical Therapy Treatment Plan Bed Mobility Training,Transfer Training,Gait Training, Therapeutic Exercise,Balance Retraining,Discharge Planning, Hot or Cold Pack,Neuromuscular Re-ed,Coordination Retraining ,Manual Therapy Precautions Other Precautions falls Weight Bearing Status Weight Bearing Status Weight Bear as Tolerated Allowed Weight Bearing Amount (enter % LLE WBAT or #) (%) Recommendations To Nursing Amount of Assist Needed Mechanical Lift Discharge Recommendations PT Discharge Recommendations SNF Rehab Transportation Needs at Discharge Wheelchair/Cabulance
[2023-11-28] MEDS: OXYCODONE IR 5 MG TABLET PO (13:02)
--- NOTE | 2023-11-28 13:18 | PM.PN.1 ---
Subjective Subjective Interval history: 78 M admitted with super and inferior pubic rami fractures. Pain is a bit better controlled today. He tells me he has never seen a speech therapist. Removed IV and refused labs this morning. Exam Vital Signs (past 8 hours): - 11/28/23 08:00 11/28/23 08:40 11/28/23 12:00 Temperature 99.2 F 97.9 F Pulse Rate 72 72 65 Respiratory Rate 16 18 Blood Pressure 122/54 L 122/54 L 128/63 Pulse Oximetry 95 98 Oxygen Flow Rate 0 Oxygen Delivery Method Room Air Oxygen Flow Rate 0 Narrative Exam Narrative: Gen: No acute distress CV: RRR Pulm : CTA b/l Abd: S NT ND Ext: no edema Objective Labs 11/26/23 07:35 11/27/23 08:23 [facility] Medical History Tachycardia Afib CVA (cerebral vascular accident) (~2013) Spinal stenosis Poor balance Surgical History Status post cataract extraction and insertion of intraocular lens of left eye Hx of LASIK Social History household members: none Smoking Status: Never smoker alcohol intake: current Assessment & Plan Assessment & Plan narrative: Acute comminuted and slightly displaced pelvic fracture involving left superior and inferior pubic rami. -stopped IV fluids -Hold Xarelto for now, possible hematoma monitor h/h but patient refusing labs, will try to repeat daily. -Incentive spirometry -Pain medications as needed, pain improved with change to oxycodone today. -Bowel regimen while on narcotics -Fall precaution -PT and OT evaluation to continue, SNF recommended Paroxysmal atrial fibrillation, status post Watchman procedure in 2019, rate controlled on Xarelto. Hold Xarelto for now. Can stop telemetry. Did have a few runs of NSVT. Started on beta william therapy, as cardiology had previously recommended Hypothyroidism. continue levothyroxine. Hypertension. will stop hydralazine with soft BP, will hold entresto for now with low normal BP today. CHFrEF/nonischemic cardiomyopathy. hold diuretic and entresto for now. BP is improved today. Patient's day care director wished to have patient on beta william. started on 25 mg of metoprolol daily today. Depression. Restart risperidone and sertraline Possible chronic aspiration - - will have WORK COUNSELOR eval. Code: DNR, surrogate is patient's spouse Additional history obtained from discussion with therapists and correctional casework specialist today, along with bedside RN. Dispo: Inpatient, likely discharge to SNF in a couple of days. Time-Based Coding :: [TOTAL MINUTES] spent with patient and on the chart (including review of chart, obtaining history, exam, reviewing outside data, placing orders, documenting exam and treatment plan, and counseling patient) on [DATE]. Quality VTE Deep Vein Thrombosis/Pulmonary Embolism Present on Admission: No
--- NOTE | 2023-11-28 13:50 | OT.IP.TRT ---
Current Diagnoses Unspecified fracture of unspecified pubis, initial encounter for closed fracture (11/26/23) Occupational Therapy Treatment Note M2 OT-IP Current Condition Start: 11/26/23 15:00 Freq: Status: Active Protocol: Document 11/26/23 15:00 [facility] (Rec: 11/26/23 15:15 [facility] [id number]) Occupational Therapy Current Condition Current Condition Evaluation Date 11/26/23 Treatment Diagnosis Acute communuted and slight displaced pelvic fx involving left sup. & inf p Diagnosis Onset Date Weight Bearing Status Weight Bearing Status Weight Bear as Tolerated M3 OT- IP Subjective and Pain Start: 11/26/23 15:00 Freq: Status: Active Protocol: Document 11/28/23 15:06 [facility] (Rec: 11/28/23 15:16 [facility] [id number]) OT- Subjective Occupational Therapy Visit Type Type Treatment Note Visit Start Time 13:20 Visit Stop Time 13:50 Occupational Therapy Visit Comments Patient Comments Pt finishing lunch when OT came in to see the pt. OT Pain Assessment Pain Present Pain Present Pain Reported Location left hip Pain Behaviors Calling Out,Facial Grimacing M4 OT- IP ADL's Start: 11/26/23 15:00 Freq: Status: Active Protocol: Document 11/28/23 15:06 [facility] (Rec: 11/28/23 15:16 [facility] [id number]) OT [id number] General Evaluation Self-Feeding Ability Moderate Assistance Comments OT Self-Feeding Comments Pt just finished eating and noted pocketing of food and food on his gown. Pt will greatly benefit from ELECTROPLATER AUTOMATIC eval. OT ADL-Grooming General Evaluation Grooming Ability Minimal Assistance Areas Needing Assistance Combing/Brushing Hair Comments OT Grooming Comments Pt trying to use the hair brush to brush his mouth and had to stop pt. Pt able to brush his teeth and step by step instructions and cues. OT ADL-Oral Care Comments Oral Care Comments MOD vc for completeness. M5 OT- IP IADL's Start: 11/26/23 15:00 Freq: Status: Active Protocol: Document 11/26/23 15:00 [facility] (Rec: 11/26/23 15:15 [facility] [id number]) OT-Instrumental Activities of Daily Living Home Safety Awareness Awareness of Need for Assistance at Home Decreased Awareness Ability to Problem Solve Emergency Unable to Problem Solve Situations Medication Management Medication Management Caregiver Administers Money Management Money Management Caregiver Provides Assistance Meal Preparation Meal Preparation Caregiver Provides Assist Twisting Press Operator Twisting Press Operator Caregiver Provides Assist M6 OT- IP Functional Cognition Start: 11/26/23 15:00 Freq: Status: Active Protocol: Document 11/28/23 15:06 [facility] (Rec: 11/28/23 15:16 [facility] [id number]) Cognitive Factors Limiting Selfcare Function Cognitive Ability Level of Alertness Alert Patient Orientation Name Attention Span Ability Capable of Focused Attention, Capable of Sustained Attention Ability to Follow Commands Able to Follow One Step Commands with Increased Time, Able to Follow One Step Commands with Repetition Cognitive Comments Cognitive Assessment Comments Pt able to follow simple commands and able to follow along to do core/trunk work or sitting to midline with initially use of his arms to assist and then from just use of his core with DREW. M9 OT- IP Assessment and Plan Start: 11/26/23 15:00 Freq: Status: Active Protocol: Document 11/28/23 15:06 [facility] (Rec: 11/28/23 15:16 [facility] [id number]) OT Summary Assessment and Plan Potential Rehabilitation Potential Fair Analytic Complexity at Evaluation Moderate Summary OT Impairments Pain,Range of Motion,Strength, Balance,Functional Cognition, Functional Mobility,Self- Feeding,Grooming,Dressing, Toileting,Bathing,Toilet Transfers,Shower Transfers, Activity Tolerance Progress Towards Goals Slow Progress due to Pain,Slow Progress due to Medical Issues,Slow Progress due to Activity Tolerance,Slow Progress due to Cognition Assessment Summary Pt able to participate in grooming and oral are needs and exercises for his core while seated. Pt will greatly benefit from skilled rehab prior to going home. Goals Self-Feeding Goal Standby Assistance Grooming Goal Standby Assistance Dressing Goal Moderate Assistance Toileting Goal Moderate Assistance Toilet Transfer Goal Moderate Assistance Shower Transfer Goal Moderate Assistance Days to Meet Goals 25 Frequency of Treatment Other frequency 5x/week Treatment Plan OT Treatment Plan ADL Training,Functional Cognition Training,Functional Mobility,Patient/Family Education,Discharge Planning Other Treatment Recommendations and Next Transfer to the [facility] with Treatment Focus MAXAx2. Discharge Recommendations OT Discharge Recommendations SNF Rehab Transportation Needs at Discharge Wheelchair/Cabulance
--- NOTE | 2023-11-28 14:06 | CM.DPC ---
DCP Cont. Reviewed EMR and team rounds for status updates. [facility] can accept pt on Saturday, will need to call and confirm the time.
[2023-11-28] MEDS: risperiDONE 0.25 MG TABLET 0.5 MG PO (20:33)
[2023-11-29] VITALS: BP 127/67; PULSE 65; RESP 18; TEMP 36.7; O2SAT 96
[2023-11-29 04:00] VITALS: BP 139/49; PULSE 84; RESP 18; TEMP 36.4; O2SAT 98
[2023-11-29] MEDS: OXYCODONE IR 5 MG TABLET PO ×2 (05:26→11:37)
[2023-11-29] MEDS: LEVOTHYROXINE 25 MCG TABLET PO (05:27)
[2023-11-29 08:18] LABS: Add Manual Diff / Slide Review NO; Basophils Absolute Auto 0 /uL (0-100); Basophils Percent Auto 0.7 % (0-2); Eosinophils Absolute Auto 200 /uL (0-450); Eosinophils Percent Auto 3.1 % (2-4); Hematocrit 26.1 % (41-53); Hemoglobin 9.2 g/dL (13.5-17.5); Lymphocytes Absolute Auto 1400 /uL (1100-4500); Lymphocytes Percent Auto 22.8 % (25-40); Mean Corpuscular HGB Conc 35.2 % (30-36); Mean Corpuscular Hemoglobin 33.1 PG (26-34); Mean Corpuscular Volume 94.1 fL (80-100); Monocytes Absolute Auto 600 /uL (0-900); Neutrophils Absolute Auto 3900 /uL (1500-7000); Neutrophils Percent Auto 63.4 % (50-75); Platelet Count 137 X10^3/uL (150-400); Red Blood Cell Count 2.78 X10^6/uL (4.5-5.9); Red Cell Distribution Width 14.1 % (11.6-14.8); White Blood Cell Count 6.2 X10^3/uL (4.5-11.0)
[2023-11-29 08:33] LABS: BUN Creatinine Ratio 33.7 (6-22); Blood Urea Nitrogen 31 mg/dL (9-20); Calcium 9.2 mg/dL (8.4-10.2); Carbon Dioxide 27 mmol/L (22-32); Chloride 106 mmol/L (98-107); Estimated Glomerular Filt Rate > 60 mL/min (>60); Glucose 101 mg/dL (80-110); HEMOLYSIS < 15 (0-50); Potassium 3.8 mmol/L (3.4-5.1); Sodium 138 mmol/L (137-145)
[2023-11-29] MEDS: POTASSIUM CHLORIDE 20 MEQ TAB PO (08:38)
[2023-11-29] MEDS: SERTRALINE 50 MG TABLET 25 MG PO (08:38)
[2023-11-29] MEDS: DOCUSATE 100 MG CAPSULE PO (08:38)
[2023-11-29] MEDS: ENOXAPARIN 40 MG/0.4 ML SYRINGE SUBCUT (08:38)
[2023-11-29 08:39] VITALS: BP 139/49; PULSE 84
[2023-11-29] MEDS: METOPROLOL ER 25 MG TABLET PO (08:39)
[2023-11-29] MEDS: ACETAMINOPHEN 325 MG TABLET PO (08:39)
[2023-11-29] MEDS: risperiDONE 0.25 MG TABLET PO (08:52)
[2023-11-29 09:05] VITALS: BP 115/45; PULSE 55; RESP 19; TEMP 36.3; O2SAT 97
--- NOTE | 2023-11-29 09:34 | CM.DPC ---
Addendum entered by CHARISSE Terry 11/29/23 11:38: DCP sent Discharge summary to [facility] as requested - # [phone] fax# [phone] ABRAN Null Original Note: DCP Continued: Reviewed EMR and team rounds for pt?s medical status. Pt has been accepted at [facility], transport at 1130am. DCP notified hospitalist, JULIO, patient's of transport time. DCP completed PASRR, pending hospitalist signature. DCP spoke with [facility] in [place], notified of transport time. [facility] is requesting DC summary to be faxed, DCP to send when available. Plan: Patient to discharge at 1130 via [facility] transport for rehab. CM Team will continue to follow for coordination of discharge plans. ABRAN Null
--- NOTE | 2023-11-29 10:25 | PM.DS.1 ---
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 The patient was unable to ambulate and was sent to the ER for further evaluation. Seems to be kind of poor historian. Denies any loss of consciousness, head injury, chest pain, palpitations or dizziness prior to the event. Reports some frequent falls lately. Denies any other symptoms. In the ER he was found to have pelvic fracture and was decided to be admitted for pain control and physical therapy evaluation. Discharge Providers Provider Date of admission: 11/26/23 01:00 Discharge Date: 11/29/23 Primary care physician: Allen Waters MD Consults: 11/26/23 01:11 Consult to Occupational Therapy Evaluate & Treat Comment: Physician Instructions: Evaluate and treat Consult to Physical Therapy Evaluate & Treat Comment: Physician Instructions: Evaluate and Treat 11/28/23 13:19 Consult to Speech Therapy Evaluate & Treat Comment: Physician Instructions: Evaluate and treat Discharge provider: Jasiel Reyes MD Summary Hospital Course Discharge Diagnosis: 1. Acute comminuted and slightly displaced pelvic fracture involving left superior and inferior pubic rami. 2. Paroxysmal atrial fibrillation, status post Watchman procedure in 2019, rate controlled on Xarelto. Hold Xarelto for now. Can stop telemetry. Did have a few runs of NSVT. Started on beta william therapy, as cardiology had previously recommended 3. Hypothyroidism. continue levothyroxine. 4. Hypertension. will stop hydralazine with soft BP, will hold entresto for now with low normal BP today. 5. CHFrEF/nonischemic cardiomyopathy. hold diuretic and entresto for now. BP is improved today. 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 started on 25 mg of metoprolol daily today. 6. Depression. Restart risperidone and sertraline. 7. Possible chronic aspiration - - will have PHARMACY TECHNOLOGIST eval. Hospital Course: He was admitted with rami fracture and his Xarelto was held due to an initial anemia. He had good pain control. It was felt that he would require [facility] facility transition after being evaluated by PT and OT. He was also concern about the possibility of chronic aspiration with his chronic cough. He does have a history of a Watchman procedure and is generally rate controlled. Metoprolol was added for some tachycardia. He also had several runs of NSVT. On the day of discharge hemoglobin was stable in his felt to be reasonable to restart his Xarelto at [facility] facility. He will discharge to [facility] today for ongoing rehabilitation. Status at Discharge Cognitive/behavioral status at discharge: at baseline, oriented Functional status at discharge: uses cane/walker Overall status at discharge: patient is progressing back to baseline Time Spent with Patient Time spent: Greater than 30 minutes Exam Vital Signs (past 8 hours): - 11/29/23 04:00 11/29/23 08:39 11/29/23 09:05 Temperature 97.6 F 97.4 F L Pulse Rate 84 84 55 L Respiratory Rate 18 19 Blood Pressure 139/49 L 139/49 L 115/45 L Pulse Oximetry 98 97 Oxygen Flow Rate 0 Oxygen Delivery Method Room Air Oxygen Flow Rate 0 Narrative Exam Narrative: NAD, alert and oriented. Slow and slurred speech. Slow movements, slow to answer questions. Lungs are clear, normal rate and effort. Heart is regular, no murmur gallop or rub. Abdomen is soft, non distended. Extremities are free of edema. Objective Imaging Pelvis CT:: Radiologist's impression: 1. Acute comminuted and slightly displaced fractures involving left superior and inferior pubic rami as described above. 2. No other fracture or dislocation. Pelvic osteoarthritis. No evidence of avascular necrosis of femoral head. 3. Soft tissue contusion involving lateral left hip with large soft tissue hematoma. 4. Suggestion of small intramuscular hematoma involving left pelvic floor muscles adjacent to pubic ramus fracture sites. No pelvic free fluid or free air. Labs 11/29/23 06:12 11/29/23 06:12 Labs: Laboratory Results - last 24 hr 11/29/23 06:12 WBC 6.2 RBC 2.78 L Hgb 9.2 L Hct 26.1 L MCV 94.1 MCH 33.1 MCHC 35.2 RDW 14.1 Plt Count 137 L Neut % (Auto) 63.4 Lymph % (Auto) 22.8 L [place] % (Auto) 10.0 Eos % (Auto) 3.1 Baso % (Auto) 0.7 Neut # (Auto) 3900 Lymph # (Auto) 1400 [place] # (Auto) 600 Eos # (Auto) 200 Baso # (Auto) 0 Sodium 138 Potassium 3.8 Chloride 106 Carbon Dioxide 27 BUN 31 H Creatinine 0.92 Estimated GFR > 60 BUN/Creatinine Ratio 33.7 H Glucose 101 Calcium 9.2 PFSH Medical History Tachycardia Afib CVA (cerebral vascular accident) (~2013) Spinal stenosis Poor balance Surgical History Status post cataract extraction and insertion of intraocular lens of left eye Hx of LASIK Social History household members: none Smoking Status: Never smoker alcohol intake: current Discharge Assessment & Plan Assessment and Plan Assessment: 1. Acute comminuted and slightly displaced pelvic fracture involving left superior and inferior pubic rami. Plan of Treatment: Discharge to [facility] facility for rehabilitation efforts. We will monitor hemoglobin there to rule out worsening blood loss anemia. Discharge Plan Discharge Plan Patient Disposition: SNF Transfer to: [facility] Under care of provider: Dr Huddleston Discharge orders & Medications Prescriptions: New metoprolol succinate 25 mg Tablet Extended Release 24 Hr 25 mg PO DAILY Qty: 30 0RF oxycodone 5 mg Tablet 5 mg PO Q3HR PRN (Reason: Pain, Moderate (4-6)) Qty: 15 0RF Continued hydralazine 25 mg 25 mg TID Rx Instructions: hold for sys <100 bumetanide 2 mg tablet 2 mg PO DAILY acetaminophen 500 mg 1 tab TID risperidone 0.25 mg tablet 0.25 mg PO DAILY levothyroxine 25 mcg tablet 25 mcg PO DAILY potassium chloride 20 mEq tablet,ER particles/crystals 20 meq PO DAILY sertraline 25 mg tablet 25 mg PO DAILY risperidone 0.5 mg tablet 0.5 mg PO BEDTIME Eliquis 5 mg tablet 5 mg PO BID Entresto 24-26 mg tablet 1 tab PO BID Discontinued naproxen 220 mg 2 tab DAILY Medication counseling provided by Pharmacist: No Follow up/Referrals: Allen Waters MD [Primary Care Provider] - Discharge Health Status Multidrug resistant organism: No MDRO Diet/Activity/Treatments Diet: Regular Liquid consistency: Normal/Thin Activity: As tolerated Skin/Wound/Dressing Care Report to your healthcare provider any signs of infection, such as:: increased pain, unusual drainage and unusual redness Special Rehabilitation Services Reason for rehabilitation: Recovery r/t decondition Rehab type: Physical therapy and Occupational therapy Visit Report/Discharge Packet Instructions: DI for Fracture Stand Alone Forms: Patient Portal/API Discharge Data Primary Care Provider: Allen Waters VTE Deep Vein Thrombosis/Pulmonary Embolism Present on Admission: No MIPS - DC The patient has a history of heart transplant or Left Ventricular Assist Device (LVAD). If yes, STOP here.: No The patient has current or prior documentation of left ventricular ejection fraction (LVEF) less than or equal to 40%, or moderate or severely depressed left ventricular systolic function.: No
--- NOTE | 2023-11-29 12:44 | SLP.IPNOTE ---
Attempted to see pt at 11:35, though RN reported pt is getting ready to discharge. 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 MD notified. No further follow-up necessary at this time as pt is discharging to [facility].
--- NOTE | 2023-11-29 12:45 | PC.NURSE ---
Patient is A&Ox1-2, forgetful. He is cooperative and pleasant this a.m. VSS, afebrile on RA. He is able to tolerate breakfast well this a.m Intermittently coughing but clears throat. He is sat up at 90 degrees, aspiration precautions. He is able to take meds in applesauce. He is cleared for d/c to [facility] by hospitalist today, evaluating patient at bedside. He states his last BM was a couple of days ago however noted that no BM documented since admission. Report called to [facility] at [facility]. Patient is transported via [facility] to facility designee w/ and transported with packet, and belongings over to [facility] at 1230 this afternono.
== END 2023-11-29 12:30 | DRG 536 ==
LOC: ED 23:34 → AC 11-26 01:01
PROVIDERS: Internal Medicine; Admitting Provider Internal Medicine; Emergency Provider Emergency Medicine; Family Provider Family Medicine; PCP Family Medicine; Referring Provider Emergency Medicine; Visit Provider Internal Medicine
DX: S32.512A Fracture of superior rim of left pubis, initial encounter for closed fracture (principal); I50.22 Chronic systolic (congestive) heart failure; I42.8 Other cardiomyopathies; I47.19 Other supraventricular tachycardia; S32.592A Other specified fracture of left pubis, initial encounter for closed fracture; I48.91 Unspecified atrial fibrillation; I69.393 Ataxia following cerebral infarction; I69.322 Dysarthria following cerebral infarction; E03.9 Hypothyroidism, unspecified; I11.0 Hypertensive heart disease with heart failure; F32.A Depression, unspecified; J98.8 Other specified respiratory disorders; W18.30XA Fall on same level, unspecified, initial encounter; Z66 Do not resuscitate; Z95.818 Presence of other cardiac implants and grafts; Z79.01 Long term (current) use of anticoagulants
CPT/HCPCS: 36415; 70450; 72192; 73502; 80048; 80053; 83735; 85025; 97162; 97166; 97530; 97535; 99284; 99285; J1170; J1650

== ENCOUNTER 2024-07-11 15:34 | Emergency (ER) | payer MEDICARE, SELFPAY ==
[2023-11-26 02:35] VITALS: BMI 21.4
[2024-07-11] VITALS (9 sets, daily range): BP systolic 136–184; BP diastolic 74–105; PULSE 68–98; RESP 16–21; TEMP 36.9–37; O2SAT 92–99; BMI 25.7
--- NOTE | 2024-07-11 15:39 | DI.CT.S_ITS ---
PROCEDURE: CT HEAD/BRAIN WO CON INDICATIONS: fall, ? hit head, dementia, blood on ear, on eliquis TECHNIQUE: Noncontrast 4.5 mm thick angled axial sections acquired from the foramen magnum to the vertex, with coronal and sagittal reformats. For radiation dose reduction, the following was used: automated exposure control, adjustment of mA and/or kV according to patient size. COMPARISON: [facility], CT, CT CERVICAL SPINE WO CON, 07/11/2024, 15:48. [facility], CT, CT HEAD/BRAIN WO CON, 11/25/2023, 23:20. FINDINGS: Image quality: Streak artifact can be seen through the skull base. CSF spaces: Basal cisterns are patent. No extra-axial fluid collections. The ventricles are symmetric in size and shape. Brain: No intracranial bleeds or mass effect. There is cerebral volume loss, with resultant ventricular and sulcal prominence. There are periventricular and deep white matter chronic small vessel ischemic changes. There is a remote right TOBACCO GRADER territory infarction, with volume loss and encephalomalacia.. There is intracranial internal carotid artery atherosclerosis. Skull and face: Calvarium and visualized facial bones appear intact, without suspicious lesions. Sinuses: Visualized sinuses and mastoids are clear. IMPRESSION: No acute intracranial hemorrhage is seen. No acute intracranial process is seen. Remote right TOBACCO GRADER territory infarction. Dictated by: Jose Arroyo M.D. on 07/11/2024 at 15:05 Approved by: Jose Arroyo M.D. on 07/11/2024 at 15:06
--- NOTE | 2024-07-11 15:39 | DI.CT.S_ITS ---
PROCEDURE: CT CERVICAL SPINE WO CON INDICATIONS: fall, ? hit head, dementia, blood on ear, on eliquis TECHNIQUE: Noncontrast 3 mm thick sections acquired from the skull base to the T4 level. Sagittal and coronal reformats were then constructed. For radiation dose reduction, the following was used: automated exposure control, adjustment of mA and/or kV according to patient size. COMPARISON: [facility], CT, CT HEAD/BRAIN WO CON, 07/11/2024, 15:48. FINDINGS: Image quality: This examination is somewhat limited by quantum mottle artifact. Bones: No acute fractures or dislocations. Visualized superior ribs are intact. There is a remote, unfused type 2 dens fracture, with chronic remodeling change. There is focal moderate to severe disc space narrowing at C6-C7, with associated endplate irregularity and sclerosis. Posteriorly projected endplate osteophytes are seen. Milder degenerative changes are seen elsewhere. Prior postoperative change can be seen on the right, with removal of portions of the posterior elements and placement of plate and screw fixation. Soft tissues: Prevertebral soft tissues are normal in thickness. No paravertebral hematomas. No apical pneumothoraces. Atherosclerotic calcification is noted. IMPRESSION: Negative for acute fracture. There is a remote, unfused type 2 dens fracture seen, with remodeling change. Prior postoperative change can be seen on the right, with removal of portions of the posterior elements and placement of bone grafting material. Degenerative changes are seen, which are worst at the C6-C7 level. Dictated by: Jose Arroyo M.D. on 07/11/2024 at 15:02 Approved by: Jose Arroyo M.D. on 07/11/2024 at 15:05
--- NOTE | 2024-07-11 15:39 | DI.RAD.S_ITS ---
PROCEDURE: XR HIP W PEL IF DONE RT 2V INDICATIONS: hip pain but walking on Right, no complaints currently TECHNIQUE: AP pelvis with lateral view(s) of the right hip(s). COMPARISON: [facility], CT, CT HEAD/BRAIN WO CON, 07/11/2024, 15:48. [facility], CT, CT CERVICAL SPINE WO CON, 07/11/2024, 15:48. [facility], CR, XR HIP W PEL IF DONE LT 2V, 11/25/2023, 23:01. FINDINGS: Bones: No acute fractures or dislocations. Previously ramus fracture healed. Pelvic ring appears intact. No suspicious bony lesions. There is [id number] superior joint space narrowing seen of both hips, with associated remodeling changes with subchondral sclerosis and osteophyte formation. Age-appropriate lower lumbar spine degenerative changes are noted. Soft tissues: The visualized bowel gas pattern is normal. No suspicious soft tissue calcifications. Atherosclerotic calcification is noted. IMPRESSION: [id number] change can be seen. The prior left superior ramus fracture has healed. Dictated by: Jose Arroyo M.D. on 07/11/2024 at 15:38 Approved by: Jose Arroyo M.D. on 07/11/2024 at 15:40
--- NOTE | 2024-07-11 15:39 | ED.FALL ---
HPI - Fall General Chief Complaint: Trauma Stated Complaint: Fall on thinners T-1, R hip Px Time Seen by Provider: 07/11/24 15:34 Source: patient, RN notes reviewed and old records reviewed Mode of arrival: EMS Limitations: other (dementia) History of Present Illness HPI Narrative: 79-year-old male history of atrial fibrillation on Eliquis, history of prior CVA with a aphasia, coronary artery disease, lives currently in a memory care unit. Patient reportedly had a fall overnight was seen by medics decision was made not to transport. Patient has been ambulating today but complaining of hip pain on the right side. Medic states the when they arrived I did seem a little bit uncomfortable in the right side. Unclear if he hit his head that has no report of it. He does take a daily anticoagulant. Patient denies any other concerns currently. He indicates that his hip does hurt but no pain with movement or on exam. He states he did fall he states the cause was ?gravity?. He was unclear if he hit his head or had any loss of consciousness. Denies any other symptoms currently. Related Data Home Medications Medication Instructions Recorded Confirmed hydralazine 25 mg TID 03/09/20 11/26/23 acetaminophen 1 tab TID 11/26/23 11/26/23 apixaban 5 mg tablet (Eliquis) 5 mg PO BID 11/26/23 11/26/23 bumetanide 2 mg tablet 2 mg PO DAILY 11/26/23 11/26/23 levothyroxine 25 mcg tablet 25 mcg PO DAILY 11/26/23 11/26/23 potassium chloride 20 mEq 20 meq PO DAILY 11/26/23 11/26/23 tablet,extended release(part/cryst) risperidone 0.25 mg tablet 0.25 mg PO DAILY 11/26/23 11/26/23 risperidone 0.5 mg tablet 0.5 mg PO BEDTIME 11/26/23 11/26/23 sacubitril 24 mg-valsartan 26 mg 1 tab PO BID 11/26/23 11/26/23 tablet (Entresto) sertraline 25 mg tablet 25 mg PO DAILY 11/26/23 11/26/23 Previous Rx's Medication Instructions Recorded metoprolol succinate 25 mg 25 mg PO DAILY #30 tabs 11/29/23 tablet,extended release 24 hr oxycodone 5 mg tablet 5 mg PO Q3HR PRN Pain, Moderate 11/29/23 (4-6) #15 tabs Allergies Allergy/AdvReac Type Severity Reaction Status Date / Time amlodipine Allergy Verified 11/26/23 00:24 dexamethasone Allergy Verified 11/26/23 00:24 lisinopril Allergy Verified 11/26/23 00:24 tositumomab iodine-131 Allergy Verified 11/26/23 00:24 Review of Systems Review of Systems ROS Unobtainable: All systems reviewed & are unremarkable except as noted in HPI and below Patient History Medical History Tachycardia Afib CVA (cerebral vascular accident) (~2013) Spinal stenosis Poor balance Surgical History Status post cataract extraction and insertion of intraocular lens of left eye Hx of LASIK Social History household members: none alcohol intake: current alcohol intake frequency: a few times a week Exam Narrative Exam Narrative: GEN: Patient appears in mild distress. Patient is alert oriented to self, knows he was at a hospital, answer some questions correctly but admits that he does not recall all the answers. HEAD: No evidence of trauma except for an abrasion and dried blood in the left ear, no raccoon/Nash sign. NECK: Nontender, painless range of motion, trachea midline EYES: PERRLA, EOMI ENT: External inspection normal, trachea is midline, TM's are normal no hemotypanum, Nares are clear, no septal hematoma, no dental or oral injury, airway is normal and with normal occlusion, No bony tenderness RESP: Chest is nontender and has symmetric movement, no ecchymosis, breath sounds are normal no crackles, wheezes or rales CVS: Heart sounds are normal, no murmur noted, No JVD. ABG/GI: Nontender, soft, normal bowel sounds, no distention, no organomegaly, pelvic rock is negative NEURO: Oriented AOx3, neuro is grossly intact, sensation and motor is normal all 4 extremities moving, cranial nerves II through XII are intact, GCS is 14, PSYCH: Normal mood and affect SKIN: Intact, warm and dry, no crepitus and without decubitus BACK: No CVA tenderness, no vertebral tenderness, no step-off's, no crepitus EXT: Atraumatic, hips are nontender, no pedal edema, normal color and temperature, normal range of motion of extremities with normal tendon exam, 2+ pulses in all four extremities Initial Vital Signs Initial Vital Signs: Vital Signs Temperature 98.6 F 07/11/24 15:34 Pulse Rate 68 07/11/24 15:34 Respiratory Rate 16 07/11/24 15:34 Blood Pressure 136/84 07/11/24 15:34 Pulse Oximetry 96 07/11/24 15:34 Oxygen Delivery Method Room Air 07/11/24 15:34 Course Orders Ordered: ED Orders 07/11/24 15:39 CT cervical spine wo con Stat CT head/brain wo con Stat XR hip w pel RT 2V Stat Vital Signs Vital signs: Vital Signs - 8 hr 07/11/24 15:34 07/11/24 15:38 07/11/24 15:39 Temperature 98.6 F Pulse Rate 68 Respiratory Rate 16 Blood Pressure 136/84 136/84 Pulse Oximetry 96 92 Oxygen Delivery Method Room Air 07/11/24 15:39 07/11/24 16:07 07/11/24 16:28 Temperature Pulse Rate 69 70 70 Respiratory Rate 16 Blood Pressure Pulse Oximetry 96 95 98 Oxygen Delivery Method Room Air 07/11/24 16:28 07/11/24 16:30 07/11/24 16:31 Temperature Pulse Rate 70 Respiratory Rate 21 Blood Pressure 156/74 H 163/74 H Pulse Oximetry Oxygen Delivery Method 07/11/24 16:31 07/11/24 17:00 07/11/24 17:00 Temperature Pulse Rate 69 74 79 Respiratory Rate 19 21 21 Blood Pressure 184/105 H Pulse Oximetry 99 Oxygen Delivery Method Room Air MDM - Fall MDM Narrative Medical decision making narrative: Head CT no acute intracranial hemorrhage no acute intracranial process remote right MARINE SERVICES TECHNICIAN territory infarction. CT cervical spine negative for acute fracture, remote unfused type 2 dens fracture seen with remodeling change, prior postoperative change seen on the right with a remove a portions posterior elements and placement of bone grafting materials. Degenerative changes seen which are worse at C6-7. Right hip x-ray, no fractures or dislocations previous ramus fracture healed. Pelvic ring appears intact no suspicious bony lesions [id number]. Joint space narrowing seen both hips with the associated melena changes subchondral sclerosis and osteophyte formation. Reviewed findings with the orthopedic surgery, Dr. Malik who notes legs are rotated but does not appreciate a fracture. Patient was nontender on exam of his neck and back, he has good range of motion, unclear if he did even hit his head but did have some abrasion blood on the side of his left ear. He was full range of motion of his legs without any pain is and no pain on palpation in his felt appropriate for discharge back home. On recheck patient was sleeping on his right hip. Patient is pleasantly confused, refuses to ambulate but does not have pain for me on exam. But does not quite seem to understand why we want him to ambulate. Multiple calls out to patient's family including she lives on [address]. She was reluctant to come [place] did discuss with her if he transports via BLS there maybe significant out of pocket cost if he does not meet criteria. Discharge Plan Departure Patient Disposition: Home Clinical Impression: Hip pain, right Activity Restrictions/Additional Instructions: Your imaging today shows a remote, unfused type 2 dens fracture seen there is remodeling changes. As well as changes to the lower cervical spine with degenerative changes and postoperative changes. Hip x-ray shows degenerative changes but no fracture. Continue home medications as prescribed. I would recommend continue with Tylenol up to a 1000 mg every 6 hours as needed for pain. Please return if you have any other new or concerning changes, new neck pain, back pain, inability to ambulate, new numbness, weakness or other new or concerning changes. Prescriptions: No Action hydralazine 25 mg 25 mg TID Rx Instructions: hold for sys <100 bumetanide 2 mg tablet 2 mg PO DAILY acetaminophen 500 mg 1 tab TID risperidone 0.25 mg tablet 0.25 mg PO DAILY levothyroxine 25 mcg tablet 25 mcg PO DAILY potassium chloride 20 mEq tablet,ER particles/crystals 20 meq PO DAILY sertraline 25 mg tablet 25 mg PO DAILY risperidone 0.5 mg tablet 0.5 mg PO BEDTIME Eliquis 5 mg tablet 5 mg PO BID Entresto 24-26 mg tablet 1 tab PO BID metoprolol succinate 25 mg Tablet Extended Release 24 Hr 25 mg PO DAILY Qty: 30 0RF oxycodone 5 mg Tablet 5 mg PO Q3HR PRN (Reason: Pain, Moderate (4-6)) Qty: 15 0RF Referrals: Allen Waters MD [Primary Care Provider] - Stand Alone Forms: Patient Portal/API/Survey
--- NOTE | 2024-07-11 17:23 | PC.NURSE ---
Pt refusing to get up and walk in room. Pt is able to move left and right legs. Dr Ac notified. ok for pt to transfer home.
--- NOTE | 2024-07-11 17:45 | PC.NURSE ---
Pt c/o pain to right hip. Not able to lift right leg off of gurney.
--- NOTE | 2024-07-11 17:53 | PC.NURSE ---
Pt able to sit at bedside with assistance. Unable to stand or walk. Assisted back to bed. MD notified.
== END 2024-07-11 19:18 | disposition home or self-care (01) ==
PROVIDERS: Emergency Provider Emergency Medicine; Family Provider Family Medicine; PCP Family Medicine
DX: M25.551 Pain in right hip (principal); S00.412A Abrasion of left ear, initial encounter; Z79.01 Long term (current) use of anticoagulants; S09.90XA Unspecified injury of head, initial encounter; R41.0 Disorientation, unspecified; Z86.73 Personal history of transient ischemic attack (TIA), and cerebral infarction without residual deficits; W19.XXXA Unspecified fall, initial encounter
CPT/HCPCS: 70450; 72125; 73502; 99284